=== PATIENT | male | born 1935 | race Caucasian/White ===

== ENCOUNTER → 2016-06-16 | Outpatient (CLI) | payer MEDICARE | END | disposition home or self-care (01) | LOC: GMAL 10:21 | PROVIDERS: ATTEND Family Medicine | DX: Z12.5 Encounter for screening for malignant neoplasm of prostate (principal); Z79.899 Other long term (current) drug therapy; D51.3 Other dietary vitamin B12 deficiency anemia; E55.9 Vitamin D deficiency, unspecified; E03.9 Hypothyroidism, unspecified | CPT/HCPCS: 82306; 82607; 84439; 84443; G0103 ==

== ENCOUNTER 2016-06-21 12:55 | Observation (INO) | payer MEDICARE ==
[2016-06-21] MEDS ORDERED: ASPIRIN TABLET 325 MG TAB PO ONE (13:35)
[2016-06-21] MEDS ORDERED: ASPIRIN TABLET 325 MG TAB ONE (13:36)
--- NOTE | 2016-06-21 14:33 | RAD ---
EXAM DESCRIPTION: Chest,1 View CLINICAL HISTORY: CHEST PAIN COMPARISON: April 02, 2016 IMPRESSION: Single AP portable upright view of the chest shows cardiac silhouette and pulmonary vasculature to be within normal limits. Lungs are normally aerated and clear. Sternotomy wires are seen. Left subclavian dual-lead transvenous cardiac pacemaker is identified. No obvious pleural effusion or pneumothorax is seen. Electronically signed by: Hunter Covarrubias MD 06/21/2016 1:51 PM SEISMOLOGY TEACHER
--- NOTE | 2016-06-21 15:14 | ED.PDOC ---
History of Present Illness - General Chief Complaint: Chest Pain/FL Stated Complaint: chest pain Time Seen by Provider: 06/21/16 14:30 Source: patient, RN notes reviewed, Vital Signs reviewed Exam Limitations: no limitations - History of Present Illness Initial Comments: Patient is a 81 y/o male with a history of FL s/p CABG in 2000 who had some mild chest pressure that radiated up to his neck, in addition to pain (he reports a numb kind of pain) in his lower left arm. This started around noon. He had some mild shortness of breath. He took a Nitro and shortly thereafter had some diaphoresis, however the chest and neck pain decreased, however the arm pain persisted. The arm pain now is moderate, with very mild chest pain and no neck pain at this time. Timing/Duration: 1-3 hours Severity: mild, moderate Worsening Factors: medication - Nitro x 1 Associated Symptoms: chest pain, diaphoresis Allergies/Adverse Reactions: Allergies Nitrofurantoin [From Macrobid] Allergy (Unknown, Verified 10/11/15 06:37) Sulfamethoxazole w/Trimethoprim [From Bactrim] Allergy (Unknown, Verified 06:37) Diltiazem Adverse Reaction (Unknown, Verified 10/11/15 06:37) bradycardia Solifenacin [From Vesicare] Adverse Reaction (Unknown, Verified 10/11/15 06:37) constipation Home Medications: Ambulatory Orders Aspirin [Aspirin Adult Low Dose] 81 mg PO DAILY 08/25/14 Finasteride 5 mg PO DAILY 08/25/14 Metoprolol Tartrate 100 mg PO BIDFD 08/25/14 Pravastatin Sodium [Pravachol] 80 mg PO BEDTIME 08/25/14 glipiZIDE [Glucotrol] 2.5 mg PO DAILY 08/25/14 Sitagliptin-Metformin HCl [Janumet Xr 50-500 mg] 1 tab PO BID 11/27/14 Levothyroxine Sodium [Synthroid] 75 mcg PO ACBK 01/02/15 Multiple Vitamins W/ Minerals [One Daily Mens] 1 tab PO DAILY 01/02/15 Tamsulosin [Flomax] 0.4 mg PO DAILY 01/02/15 Cephalexin Monohydrate [Keflex] 500 mg PO DAILY 06/01/15 Lisinopril 40 mg PO DAILY 06/01/15 Hydrochlorothiazide 12.5 mg PO DAILY #0 06/02/15 Saxagliptin-Metformin HCl [Kombiglyze Xr] 1 tab PO 12/28/15 amLODIPine BESYLATE [Norvasc] 12/28/15 Review of Systems - Review of Systems Constitutional: States: diaphoresis EENTM: States: no symptoms reported Respiratory: States: short of breath Cardiology: States: chest pain, palpitations Gastrointestinal/Abdominal: States: no symptoms reported Genitourinary: States: no symptoms reported Musculoskeletal: States: back pain Skin: States: no symptoms reported Neurological: States: no symptoms reported Endocrine: States: no symptoms reported Hematologic/Lymphatic: States: no symptoms reported All other Systems: Reviewed and Negative Past Medical History (General) - Patient Medical History Hx Seizures: No Hx Stroke: No Hx Dementia: No Hx Asthma: No Hx of COPD: Yes Hx Cardiac Disorders: Yes - proxymal atrial fib, CAD Hx Congestive Heart Failure: No Hx Pacemaker: Yes Hx Hypertension: Yes Hx Thyroid Disease: Yes Hx Diabetes: Yes Hx Gastroesophageal Reflux: Yes - recent onset Hx Renal Disease: Yes - chronic UTI's Hx Cancer: No Hx of HIV: No Hx Hepatitis C: No Hx MRSA: Yes MRSA Source:: Sputum Surgical History: coronary bypass surgery, pacemaker - Vaccination History Hx Tetanus, Diphtheria Vaccination: - UNKN Hx Influenza Vaccination: Yes Hx Pneumococcal Vaccination: Yes - Social History Hx Tobacco Use: No Hx Chewing Tobacco Use: No Hx Alcohol Use: No Hx Substance Use: No Hx Depression: No Hx Physical Abuse: No Hx Emotional Abuse: No Hx Suspected Abuse: No - Female History Patient : No Family Medical History - Family History Father Family History: Unknown Living Status: Age at (years of age): 66 Cause of : infectious process Hx Family Hypertension: Yes Hx Cardiac Disease: Yes Mother Living Status: Age at (years of age): 79 Cause of : Alzheimer's Hx Family Stroke: Yes Hx Cardiac Disease: Yes Hx Family;Other: Family Hx of Alpha1 antitrypsin deficiency Physical Exam - Physical Exam General Appearance: Alert, Comfortable, No apparent distress, Obese Eye Exam: bilateral normal Ears, Nose, Throat: hearing grossly normal, normal ENT inspection Respiratory: lungs clear, normal breath sounds, no respiratory distress, no accessory muscle use Cardiovascular/Chest: regular rate, rhythm, no edema, no gallop, no JVD, no murmur Gastrointestinal/Abdominal: normal bowel sounds, non tender, soft, no organomegaly Extremity: normal range of motion, non-tender, normal inspection, no calf tenderness, pedal edema Neurologic: alert, normal mood/affect, oriented x 3 Skin Exam: normal color Progress - Results/Orders Results/Orders: 06/21/16 06/21/16 06/21/16 13:13 14:13 14:38 Temperature 96.6 F L Pulse Rate [ 63 62 MONITOR] Respiratory 20 20 Rate Blood Pressure 116/64 131/73 [Left Arm] O2 Sat by Pulse 97 97 Oximetry 06/21/16 06/21/16 06/21/16 15:00 16:00 17:00 Temperature Pulse Rate [ 60 60 62 MONITOR] Respiratory 20 20 Rate Blood Pressure 110/60 118/66 125/59 [Left Arm] O2 Sat by Pulse Oximetry 06/21/16 13:35 IV Care:Saline Lock per Protoc QSHIFT Telemetry .ONCE Sodium Chloride 0.9% (Flush) [Saline Flush Syringe] 10 ml IV PRN PRN Pulse Ox Stat 06/21/16 15:45 EKG STAT 06/21/16 17:00 EKG STAT Laboratory Results WBC 8.1 K/mm3 (4.8-10.8) 06/21/16 13:39 RBC 4.45 M/mm3 (4.70-6.10) L 06/21/16 13:39 Hgb 13.4 gm/dL (14.0-18.0) L 06/21/16 13:39 Hct 39.9 % (42.0-52.0) L 06/21/16 13:39 MCV 89.6 fl (80.0-94.0) 06/21/16 13:39 MCH 30.1 pg (27.0-31.0) 06/21/16 13:39 MCHC 33.6 g/dL (33.0-37.0) 06/21/16 13:39 RDW 13.7 % (11.5-14.5) 06/21/16 13:39 Plt Count 201 K/mm3 (130-400) 06/21/16 13:39 MPV 8.6 fl (7.40-10.4) 06/21/16 13:39 Absolute Neuts (auto) 3.80 K/uL (1.8-6.8) 06/21/16 13:39 Absolute Lymphs (auto) 3.00 K/uL (1.0-3.4) 06/21/16 13:39 Absolute Monos (auto) 0.80 K/uL (0.2-0.8) 06/21/16 13:39 Absolute Eos (auto) 0.40 K/uL (0.0-0.4) 06/21/16 13:39 Absolute Basos (auto) 0.00 K/uL (0.0-0.1) 06/21/16 13:39 Neutrophils % 47.1 % (42.0-78.0) 06/21/16 13:39 Lymphocytes % 37.5 % (20.0-50.0) 06/21/16 13:39 Monocytes % 9.7 % (2.0-9.0) H 06/21/16 13:39 Eosinophils % 5.2 % (1.0-5.0) H 06/21/16 13:39 Basophils % 0.5 % (0.0-2.0) 06/21/16 13:39 PT 12.2 SECONDS (9.4-12.5) 06/21/16 13:39 INR 1.080 06/21/16 13:39 PTT (SP) 32.5 SECONDS (25.1-36.5) 06/21/16 13:39 D-Dimer, Quantitative < 230 ng/mL (0-230) 06/21/16 13:39 Sodium 138 mmol/L (135-145) 06/21/16 13:39 Potassium 3.7 mmol/L (3.6-5.0) 06/21/16 13:39 Chloride 103 mmol/L (101-111) 06/21/16 13:39 Carbon Dioxide 26 mmol/L (21-31) 06/21/16 13:39 Anion Gap 12.7 (12-18) 06/21/16 13:39 BUN 19 mg/dL (7-18) H 06/21/16 13:39 Creatinine 0.90 mg/dL (0.6-1.3) 06/21/16 13:39 BUN/Creatinine Ratio 21.1 (10-20) H 06/21/16 13:39 Random Glucose 170 mg/dL (70-105) H 06/21/16 13:39 Serum Osmolality 281.9 mOsm/L (275-295) 06/21/16 13:39 Calcium 9.3 mg/dL (8.4-10.2) 06/21/16 13:39 Magnesium 1.7 mg/dL (1.8-2.5) L 06/21/16 13:39 Creatine Kinase 66 IU/L (38-174) 06/21/16 16:55 CK-MB (CK-2) 1.4 ng/mL (0.0-4.4) 06/21/16 16:55 CK-MB (CK-2) % Not Reportable 06/21/16 16:55 Troponin I < 0.02 ng/mL (0.01-0.05) 06/21/16 16:55 B-Natriuretic Peptide 39.4 pg/ml (0-100) 06/21/16 13:39 Urine Color Yellow (Yellow) 06/21/16 15:15 Urine Appearance Clear (Clear) 06/21/16 15:15 Urine pH 5.0 (4.5-7.8) 06/21/16 15:15 Ur Specific [place] <= 1.005 (1.005-1.030) 06/21/16 15:15 Urine Protein Negative mg/dL 06/21/16 15:15 Urine Glucose (UA) Negative mg/dL (Negative) 06/21/16 15:15 Urine Ketones Negative mg/dL (NEGATIVE) 06/21/16 15:15 Urine Blood Negative (Negative) 06/21/16 15:15 Urine Nitrite Negative 06/21/16 15:15 Urine Bilirubin Negative (NEGATIVE) 06/21/16 15:15 Urine Urobilinogen 0.2 mg/dL (0.2-1.0) 06/21/16 15:15 Ur Leukocyte Esterase Negative (Negative) 06/21/16 15:15 Urine RBC 0 /hpf 06/21/16 15:15 Urine WBC 0 /hpf 06/21/16 15:15 Ur Epithelial Cells 0 /hpf 06/21/16 15:15 Urine Bacteria 0 06/21/16 15:15 EKG # 3, No changes from EKG #1 and #2 Sinus rhythm Rate 61 bpm [place] NML Short [place] interval Nonspecific T wave inversion Abnormal EKG - EKG/XRAY/CT EKG: Sinus, nonspecific ST T wave Chg, Unchanged from - EKG of 10/11/2015 Comments: NML axis, short [place] -- abnormal EKG, unchanged XRAY: chest Xray Comments: No acute process CT Ordered: No - Consult/PCP Time Called: 19:00 - Call back @ 1915 Consult/PCP: Dr. Velasquez Consult Reason/Comments: call or contact centre manager for Dr. Rodriguez--admit Patient for OBS - Additional EKG/XRAY/Consults EKG #2: Sinus - 61, nonspecific ST T wave Chg, Unchanged from - EKG #1 Comments: NML axis, short [place], PACs, Departure - Departure Clinical Impression: Chest pain Qualifiers: Chest pain type: chest pain due to myocardial ischemia Qualifier Code: (I20.9) Angina pectoris, unspecified Diabetes mellitus Qualifiers: Diabetes mellitus type: type 2 Diabetes mellitus complication status: with hyperglycemia Qualifier Code: (E11.65) Type 2 diabetes mellitus with hyperglycemia Time of Disposition: 19:06 Disposition: Admit Patient Condition: Good Home Medications: Ambulatory Orders Aspirin [Aspirin Adult Low Dose] 81 mg PO DAILY 08/25/14 Finasteride 5 mg PO DAILY 08/25/14 Metoprolol Tartrate 100 mg PO BIDFD 08/25/14 Pravastatin Sodium [Pravachol] 80 mg PO BEDTIME 08/25/14 glipiZIDE [Glucotrol] 2.5 mg PO DAILY 08/25/14 Sitagliptin-Metformin HCl [Janumet Xr 50-500 mg] 1 tab PO BID 11/27/14 Levothyroxine Sodium [Synthroid] 75 mcg PO ACBK 01/02/15 Multiple Vitamins W/ Minerals [One Daily Mens] 1 tab PO DAILY 01/02/15 Tamsulosin [Flomax] 0.4 mg PO DAILY 01/02/15 Cephalexin Monohydrate [Keflex] 500 mg PO DAILY 06/01/15 Lisinopril 40 mg PO DAILY 06/01/15 Hydrochlorothiazide 12.5 mg PO DAILY #0 06/02/15 Saxagliptin-Metformin HCl [Kombiglyze Xr] 1 tab PO 12/28/15 amLODIPine BESYLATE [Norvasc] 12/28/15 Decision To Admit - Decistion To Admit Decision to Admit Reason: Admit from ER Decision to Admit Date: 06/21/16 Decision to Admit Time: 19:15
[2016-06-21] MEDS: SODIUM CHLORIDE 0.9% (FLUSH) 10 ML SYG IV PRN ×2 (18:42→21:49)
[2016-06-21] MEDS ORDERED: NITROGLYCERIN 0.2 MG/HR PATCH TD ONE (18:52)
--- NOTE | 2016-06-21 19:43 | HP ---
HISTORY OF PRESENT ILLNESS: This 81-year-old, white male was placed in the hospital overnight for observation from the Emergency Room because of onset about noon on the day of admission of fairly significant left arm and left lateral chest wall discomfort noted. He was not exerting himself, but he had some similar symptoms in the past in 2000 when he had a coronary event requiring triple bypass grafting. About 1-1/2 years ago, he had a stress EKG, which was unremarkable. He is being followed in the clinic by Dr. Combs and by Dr. Rodriguez in the cardiology clinic. He took a nitroglycerin after the onset of the discomfort and had some fairly significant improvement in the arm aching discomfort. He stated it felt like his blood supply to his left arm had been compromised and it felt like it was going to sleep and was aching and was eventually better by the time he got to the Emergency Room where eventually a nitroglycerin 0.2 mg patch was placed. At the time of his entry to the hospital , there was no pain noted. The executive chairman therapeutic recreation director for his executive chairman suggested that we observe him overnight with repeat enzymes in the morning to doubly be sure that there was no underlying coronary ischemia contributing to some of his symptoms. At the time of the discomfort, he also had some diaphoresis. He has a history of diabetes for which he takes oral medications. PAST MEDICAL HISTORY: 1. Coronary vessel disease with a triple coronary bypass grafting in 2000. 2. Diabetes mellitus, type 2. 3. Hypertension. 4. Paroxysmal atrial fibrillation. 5. Hyperlipidemia. 6. Gastroesophageal reflux disease. 7. History of nephrolithiasis since 1998. 8. Hypothyroidism since 2003. 9. 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 10. History of thyroiditis, probable [place]. 11. Benign prostatic hypertrophy without obstruction history. 12. History of chronic cystitis, recurring with requiring daily antibiotics, currently on Keflex. 13. Chronic significant incontinence of urine with a bladder stimulator placed. 14. Chronic obstructive pulmonary disease. 15. Mild congestive heart failure with most recently echocardiogram in 05/03 showing ejection fraction of 60% with mild systolic dysfunction. PAST SURGICAL HISTORY: 1. Inguinal hernia repaired in the late 50s. 2. Tonsillectomy as a child. 3. 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 4. Triple vessel coronary bypass grafting in November of 2000. 5. Coronary angiography in 2004 which showed wide open grafts. 6. Right knee arthroscopy with medial and lateral partial meniscectomies and patellofemoral chondroplasty by Dr. Olivarez in November of 2010. 7. InterStim peripheral nerve stimulator implant for refractory urge bladder incontinence by Adan in 09/2011. CURRENT MEDICATIONS: Please refer to list for up to date, verified list of home medications. ALLERGIES: MACROBID, VESICARE, DILTIAZEM, BACTRIM, SOLIFENACIN, FAMILY HISTORY: Positive for coronary artery disease, diabetes, and cancer with dementia. SOCIAL HISTORY: He has worked in [employer] business as well as [employer]. His has dementia. He has two children. He quit smoking in 1984 after 20 years of smoking. REVIEW OF SYSTEMS: GENERAL: No significant weight change, fever or chills. LUNGS: Occasional shortness of breath upon exertion. No significant cough or hemoptysis. CARDIOVASCULAR: Left upper arm discomfort noted with his current illness presentation. Occasional atrial fibrillation. GASTROINTESTINAL: Appetite is fairly good. No nausea or vomiting. No diarrhea or blood in the stools. NEUROLOGIC: No significant headaches or focal weakness. PHYSICAL EXAMINATION: VITAL SIGNS: Afebrile. Pulse 60. Blood pressure 110/60. Pulse oximetry 97% on room air. Weight 136 kg. GENERAL: The patient is awake, alert, oriented . HEENT: Unremarkable. NECK: Supple. LUNGS: Diminished breath sounds with occasional rhonchi, more on the right base versus the left. CARDIOVASCULAR: Heart tones are fairly regular without any significant gallops. ABDOMEN: Obese, yet soft with no organomegaly, masses or tenderness. EXTREMITIES: Good muscle tone is noted. No significant pedal edema otherwise evident. NEUROLOGIC: No focal neurological deficits are noted. The patient is otherwise awake, alert, oriented. LABORATORY: White count 8,100, hemoglobin 13.4. INR 1.08. D-dimer less than 230. Potassium 3.7, BUN 19, creatinine 0.9, glucose 170, magnesium 1.7. Repeat cardiac enzymes within normal limits. Troponin 0 on 3 testings. Natriuretic peptide 39.4. Recent vitamin studies by Dr. Combs reveal low B12 and vitamin D levels with normal PSA to be discussed with the patient at the next clinic visit. Chest x-ray shows no acute cardiopulmonary findings at this time. ASSESSMENT: 1. Acute lateral chest with left upper extremity discomfort, rule out underlying ischemic coronary disease. 2. History of coronary artery disease with triple coronary artery bypass grafting. 3. History of chronic pacemaker with capture. 4. Chronic urinary incontinence with a bladder stimulator in an attempt to assist. 5. Diabetes mellitus, type 2, on oral hypoglycemic agents. 6. History of congestive heart failure with etiology primarily systolic. 7. History of chronic obstructive pulmonary disease having stopped smoking approximately 31 years ago. 8. Exogenous obesity. 9. History of paroxysmal atrial fibrilla. 10. History of hyperlipidemia. 11. History of hypothyroidism on supplementation. 12. History of benign prostatic hypertrophy. PLAN: We will continue close observation with reevaluation in the morning. Continue with SCD and Lovenox for DVT prophylaxis. Repeat cardiac enzymes and EKG in the morning. Continue the nitroglycerin patch, low dose. Suggest calling Dr. Rodriguez before the patient is discharged to allow him to know of the patient's symptoms as well as his clinical course during his observation in the hospital. #[id number] MTDD
[2016-06-21] MEDS ORDERED: NITROGLYCERIN 0.4 MG 25 EA TAB SL PRN (21:10)
[2016-06-21] MEDS ORDERED: ACETAMINOPHEN 325 MG TAB PO PRN (21:10)
[2016-06-21] MEDS ORDERED: SODIUM CHLORIDE 0.9% (FLUSH) 10 ML SYG IV PRN (21:10)
[2016-06-21] MEDS ORDERED: MORPHINE SULFATE INJ 10 MG/ML VIAL IV PRN (21:10)
[2016-06-21] MEDS ORDERED: ENOXAPARIN SODIUM 40 MG/0.4 ML SYG SUBCU SCH (21:30)
[2016-06-21] MEDS ORDERED: IV SET AND CAP CHANGE INJ INJ SCH (21:30)
[2016-06-22] MEDS ORDERED: METOPROLOL TARTRATE 50 MG TAB ONE (05:23)
[2016-06-22] MEDS ORDERED: LISINOPRIL 10 MG TAB ONE (05:27)
[2016-06-22] MEDS ORDERED: OMEPRAZOLE CAP 20 MG CAP PO SCH (06:30)
[2016-06-22] MEDS ORDERED: LEVOTHYROXINE SODIUM 0.075 MG TAB PO SCH (07:00)
[2016-06-22] MEDS ORDERED: METOPROLOL TARTRATE 50 MG TAB PO SCH (07:30)
[2016-06-22] MEDS ORDERED: SODIUM CHLORIDE 0.9% 10 ML VIAL IV PRN (07:33)
[2016-06-22] MEDS ORDERED: glipiZIDE 5 MG TAB PO SCH (09:00)
[2016-06-22] MEDS ORDERED: ASPIRIN TABLET 325 MG TAB PO SCH (09:00)
[2016-06-22] MEDS ORDERED: FINASTERIDE 5 MG TAB PO SCH (09:00)
[2016-06-22] MEDS ORDERED: LISINOPRIL 10 MG TAB PO SCH (09:00)
[2016-06-22] MEDS ORDERED: SODIUM CHLORIDE 0.9% (FLUSH) 10 ML SYG IV SCH (09:00)
[2016-06-22] MEDS ORDERED: MULTIPLE VITAMINS W/ MINERALS 1 EA TAB PO SCH (09:00)
[2016-06-22] MEDS ORDERED: TAMSULOSIN 0.4 MG CAP PO SCH (09:00)
[2016-06-22] MEDS ORDERED: CEPHALEXIN MONOHYDRATE 500 MG CAP PO SCH (09:00)
[2016-06-22 11:03] VITALS: BP 128/70; TEMP 97.9; O2SAT 97
[2016-06-22] MEDS ORDERED: METFORMIN PO SCH (17:00)
[2016-06-22] MEDS ORDERED: [UNRECOGNIZED DRUG - OTHER] PO SCH (17:00)
[2016-06-22] MEDS ORDERED: SAXAGLIPTIN PO SCH (17:00)
--- NOTE | 2016-07-06 09:17 | DS ---
SUPERVISING PHYSICIAN:: CHRIS AUGUSTE MD DISCHARGE DIAGNOSES: 1. Acute lateral chest wall pain with left upper extremity discomfort, rule out underlying ischemic coronary disease. 2. History of coronary artery disease with triple coronary artery bypass grafting. 3. History of chronic pacemaker. 4. Chronic urinary incontinence with a bladder stimulator. 5. Diabetes mellitus, type 2, on oral hypoglycemic medications. 6. History of congestive heart failure with systolic etiology and unknown ejection fraction.. 7. History of chronic obstructive pulmonary disease. 8. Exogenous obesity. 9. History of paroxysmal atrial fibrillation. 10. Hyperlipidemia. 11. Hypothyroidism.. 12. History of benign prostatic hypertrophy. HISTORY OF PRESENT ILLNESS: This is a 81-year-old, white male who was placed in the hospital overnight for observation from the Emergency Room because of around noon the day of admission he had a fairly significant amount of left arm and left lateral chest pain. He was at rest but he has had some similar symptoms in the past in 2000 and at that time he had a heart attack that required triple bypass grafting. About 1-1 /2 year ago, he had a stress EKG, which was unremarkable. Dr. 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 Prior to coming to the Emergency Room he took a Nitroglycerin and had some improvement with the discomfort. In the Emergency Room, a Nitroglycerin 0.2 mg patch was placed. His initial cardiac enzymes were negative. Dr. Rodriguez was called and suggested that we place him in observation to repeat his enzymes. He had no other discomfort overnight. Cardiac enzymes continued to be negative. His triglyceride were some high at 261. Other than that, he had no discomfort overnight. His home medications were resumed. His vital signs were stable and he will be discharged home. DISCHARGE PLANS: The patient will be discharged home in stable condition. He is to resume his previous home medications. He is to resume a cardiac diet. He has a followup appointment with Dr. Rodriguez on July 05 and he is to call Dr. Combs' office and schedule an appointment within the next 1 to 2 weeks for a hospital followup. He is to return to the hospital or call Dr. Combs' office if there are any further problems or complications. DISCHARGE MEDICATIONS: 1. Metoprolol tartrate. 2. Aspirin. 3. Glucotrol. 4. Pravachol. 5. Finasteride. 6. Synthroid. 7. Multivitamins with minerals. 8. Tamsulosin. 9. Lisinopril. 10. Cephalexin. 11. Hydrochlorothiazide. 12. Kombiglyze. 13. Amlodipine. Dr. Auguste is the supervising physician and available for consultation. #[id number] [facility]
== END 2016-06-22 14:20 | disposition home or self-care (01) ==
LOC: ER 12:55 → MS 19:41
PROVIDERS: ADMIT Emergency Medicine; ATTEND Nurse Practitioner Acute Care
DX: R07.89 Other chest pain (principal); I25.10 Atherosclerotic heart disease of native coronary artery without angina pectoris; R32 Unspecified urinary incontinence; E11.65 Type 2 diabetes mellitus with hyperglycemia; R06.02 Shortness of breath; I50.22 Chronic systolic (congestive) heart failure; J44.9 Chronic obstructive pulmonary disease, unspecified; E66.9 Obesity, unspecified; I48.0 Paroxysmal atrial fibrillation; E78.5 Hyperlipidemia, unspecified; E03.9 Hypothyroidism, unspecified; I10 Essential (primary) hypertension; N40.1 Benign prostatic hyperplasia with lower urinary tract symptoms; K21.9 Gastro-esophageal reflux disease without esophagitis; G89.29 Other chronic pain; M51.36 Other intervertebral disc degeneration, lumbar region; I25.2 Old myocardial infarction; Z95.1 Presence of aortocoronary bypass graft; Z95.0 Presence of cardiac pacemaker; Z79.84 Long term (current) use of oral hypoglycemic drugs; Z79.82 Long term (current) use of aspirin; Z79.899 Other long term (current) drug therapy; Z88.3 Allergy status to other anti-infective agents; Z88.8 Allergy status to other drugs, medicaments and biological substances; Z68.37 Body mass index [BMI] 37.0-37.9, adult; Z87.442 Personal history of urinary calculi; Z85.828 Personal history of other malignant neoplasm of skin; Z87.891 Personal history of nicotine dependence; Z82.49 Family history of ischemic heart disease and other diseases of the circulatory system; Z83.3 Family history of diabetes mellitus; Z80.9 Family history of malignant neoplasm, unspecified; Z81.8 Family history of other mental and behavioral disorders
CPT/HCPCS: 36415 ×3; 71010; 80048 ×2; 80061; 81001; 82550 ×4; 82553 ×4; 83880; 84484 ×4; 85025 ×2; 85379; 85610; 85730; 93005 ×4; 94760 ×3; 96372; 99284; G0378; J1650

== ENCOUNTER → 2016-09-14 | Outpatient (CLI) | payer MEDICARE | END | disposition home or self-care (01) | LOC: GMA 18:12 | PROVIDERS: ATTEND Nurse Practitioner Family | DX: N30.01 Acute cystitis with hematuria (principal) ==

== ENCOUNTER → 2016-09-22 | Outpatient (CLI) | payer MEDICARE | END | disposition home or self-care (01) | LOC: GMAL 17:06 | PROVIDERS: ATTEND Family Medicine | DX: N30.01 Acute cystitis with hematuria (principal) ==

== ENCOUNTER → 2016-10-03 | Outpatient (CLI) | payer MEDICARE | END | disposition home or self-care (01) | LOC: GMAL 10:25 | PROVIDERS: ATTEND Family Medicine | DX: D51.3 Other dietary vitamin B12 deficiency anemia (principal); E55.9 Vitamin D deficiency, unspecified ==

== ENCOUNTER → 2016-10-07 | Outpatient (CLI) | payer MEDICARE | END | disposition home or self-care (01) | LOC: GMAL 10:39 | PROVIDERS: ATTEND Family Medicine | DX: N30.01 Acute cystitis with hematuria (principal) ==

== ENCOUNTER → 2016-12-08 | Outpatient (CLI) | payer MEDICARE | END | disposition home or self-care (01) | LOC: GMA 19:31 | PROVIDERS: ATTEND Nurse Practitioner Family | DX: N30.01 Acute cystitis with hematuria (principal) ==

== ENCOUNTER → 2017-04-06 | Outpatient (CLI) | payer MEDICARE | END | disposition home or self-care (01) | LOC: GMAL 10:39 | PROVIDERS: ATTEND Family Medicine | DX: D51.3 Other dietary vitamin B12 deficiency anemia (principal); E03.9 Hypothyroidism, unspecified; E55.9 Vitamin D deficiency, unspecified ==

== ENCOUNTER 2017-05-31 11:49 | Emergency (ER) | payer MEDICARE ==
--- NOTE | 2017-05-31 13:08 | RAD ---
EXAM DESCRIPTION: Chest,1 View CLINICAL HISTORY: chest pain COMPARISON: June 21, 2016 Findings/impression: Single upright portable frontal view of the chest. Dual-lead left chest cardiac pacemaker in stable position. Postsurgical changes with median sternotomy wires. Cardiac silhouette and pulmonary vascularity are within normal limits. Minimal linear opacities in the left lung base, most likely representing atelectasis. Otherwise, lungs are clear without definite focal consolidative infiltrates. Bilateral costophrenic angles are sharp. No pneumothorax. Electronically signed by: Mejia Jimenez MD 05/31/2017 1:06 PM [employer]
--- NOTE | 2017-05-31 13:43 | ED.PDOC ---
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 THE PAIN WAS SHARP AND RATED ABOUT 8/10/ LASTED ABDOUT 30 MINUTES AND THEN SLOWLY SUBSIDED. WHEN HE ARRIVES THE PAIN IS GONE. HE HAD BYPASS SURGERY IN 2000 AND HAD TYPE II DM. Timing/Duration: 1-3 hours Severity: moderate Location: shoulder, other - and left side of the neck Activities at Onset: none Prior Chest Pain/Cardiac Workup: other - he is a cardiac patient Improving Factors: nothing Worsening Factors: nothing Nitro Today/Relief: no nitro taken today Associated Symptoms: denies symptoms Allergies/Adverse Reactions: Allergies Nitrofurantoin [From Macrobid] Allergy (Unknown, Verified 10/11/15 06:37) Sulfamethoxazole w/Trimethoprim [From Bactrim] Allergy (Unknown, Verified 06:37) Diltiazem Adverse Reaction (Unknown, Verified 10/11/15 06:37) bradycardia Solifenacin [From Vesicare] Adverse Reaction (Unknown, Verified 10/11/15 06:37) constipation Home Medications: Ambulatory Orders Aspirin [Aspirin Adult Low Dose] 81 mg PO DAILY 08/25/14 Finasteride 5 mg PO DAILY 08/25/14 Metoprolol Tartrate 100 mg PO BIDFD 08/25/14 Pravastatin Sodium [Pravachol] 80 mg PO BEDTIME 08/25/14 glipiZIDE [Glucotrol] 2.5 mg PO DAILY 08/25/14 Levothyroxine Sodium [Synthroid] 75 mcg PO ACBK 01/02/15 Multiple Vitamins W/ Minerals [One Daily Mens] 1 tab PO DAILY 01/02/15 Tamsulosin [Flomax] 0.4 mg PO DAILY 01/02/15 Cephalexin Monohydrate [Keflex] 500 mg PO DAILY 06/01/15 Lisinopril 40 mg PO DAILY 06/01/15 Hydrochlorothiazide 12.5 mg PO DAILY #0 06/02/15 Saxagliptin-Metformin HCl [Kombiglyze Xr 2.5-1000 mg] 1 tab PO BIDFD 12/28/15 Amlodipine Besylate 10 mg PO DAILY 06/22/16 Review of Systems - Review of Systems Constitutional: States: no symptoms reported EENTM: States: no symptoms reported Respiratory: States: no symptoms reported Cardiology: States: chest pain Gastrointestinal/Abdominal: States: no symptoms reported Musculoskeletal: States: neck pain Skin: States: no symptoms reported Neurological: States: no symptoms reported Endocrine: States: no symptoms reported Hematologic/Lymphatic: States: no symptoms reported Past Medical History (General) - Patient Medical History Hx Seizures: No Hx Stroke: No Hx Dementia: No Hx Asthma: No Hx of COPD: No Hx Cardiac Disorders: Yes - CABG Hx Congestive Heart Failure: Yes Hx Pacemaker: Yes Hx Hypertension: Yes Hx Thyroid Disease: Yes Hx Diabetes: Yes Hx Gastroesophageal Reflux: Yes - recent onset Hx Renal Disease: Yes - chronic UTI's Hx Cancer: No Hx of HIV: No Hx Hepatitis C: No Hx MRSA: No MRSA Source:: Sputum Surgical History: coronary bypass surgery, pacemaker, other - Vaccination History Hx Tetanus, Diphtheria Vaccination: - UNKN Hx Influenza Vaccination: Yes - 2016 Hx Pneumococcal Vaccination: Yes - Social History Hx Tobacco Use: Yes - Quit 1984 Hx Chewing Tobacco Use: No Hx Alcohol Use: No Hx Substance Use: No Hx Depression: No Hx Physical Abuse: No Hx Emotional Abuse: No Hx Suspected Abuse: No - Female History Patient : No Family Medical History - Family History Father Family History: Unknown Living Status: Age at (years of age): 66 Cause of : infectious process Hx Family Asthma: No Hx Family Congestive Heart Failure: No Hx Family Hypertension: Yes Hx Family Stroke: No Hx Cardiac Disease: Yes Hx Family Diabetes: Yes Hx Family Cancer: Yes Mother Living Status: Age at (years of age): 79 Cause of : Alzheimer's Hx Family Congestive Heart Failure: No Hx Family Hypertension: No Hx Family Stroke: Yes Hx Cardiac Disease: Yes Hx Family Diabetes: No Hx Family Cancer: No Hx Family;Other: Family Hx of Alpha1 antitrypsin deficiency Physical Exam - Physical Exam General Appearance: Alert Eyes, Ears, Nose, Throat Exam: PERRL/EOMI, normal ENT inspection, TMs normal, pharynx normal Neck: non-tender, full range of motion, supple Respiratory: chest non-tender, lungs clear, normal breath sounds, no respiratory distress, no accessory muscle use Cardiovascular/Chest: normal peripheral pulses, regular rate, rhythm, no edema, no gallop, no JVD, no murmur Peripheral Pulses: radial,right: 2+ Gastrointestinal/Abdominal: normal bowel sounds, non tender, soft, no organomegaly, no pulsatile mass Rectal Exam: deferred Extremity: normal range of motion Neurologic: no motor/sensory deficits, alert, normal mood/affect, oriented x 3 Skin Exam: normal color Lymphatic: no adenopathy Progress - Results/Orders Results/Orders: HR OF 67, NE INTERVAL OF 80, QRS OF 94, QTC OF 397. IMPRESSION: PACED RHYTHM, NO ACUTE INJURY PATTERN NOTED TROPONIN I WAS 0.02 TH E PATIENT HAS BEEN PAIN FREE. I HAVE MADE AN APPOINTMENT WITH DR. FIGUEREDO MONDAY AT 1300 HRS. Departure - Departure Clinical Impression: Chest pain in adult Disposition: Discharge to Home or Self Care Condition: Good Departure Forms: ED Discharge - Pt. Copy, Patient Portal Self Enrollment Instructions: DI for Chest Pain Diet: resume usual diet Activity: increase activity as tolerated Referrals: Mejia Combs III, MD [Primary Care Provider] - 1-2 Weeks CAITLYN FIGUEREDO MD [Consulting Staff] - 1-2 Weeks Home Medications: Ambulatory Orders Aspirin [Aspirin Adult Low Dose] 81 mg PO DAILY 08/25/14 Finasteride 5 mg PO DAILY 08/25/14 Metoprolol Tartrate 100 mg PO BIDFD 08/25/14 Pravastatin Sodium [Pravachol] 80 mg PO BEDTIME 08/25/14 glipiZIDE [Glucotrol] 2.5 mg PO DAILY 08/25/14 Levothyroxine Sodium [Synthroid] 75 mcg PO ACBK 01/02/15 Multiple Vitamins W/ Minerals [One Daily Mens] 1 tab PO DAILY 01/02/15 Tamsulosin [Flomax] 0.4 mg PO DAILY 01/02/15 Cephalexin Monohydrate [Keflex] 500 mg PO DAILY 06/01/15 Lisinopril 40 mg PO DAILY 06/01/15 Hydrochlorothiazide 12.5 mg PO DAILY #0 06/02/15 Saxagliptin-Metformin HCl [Kombiglyze Xr 2.5-1000 mg] 1 tab PO BIDFD 12/28/15 Amlodipine Besylate 10 mg PO DAILY 06/22/16
[2017-05-31 15:26] VITALS: BP 132/59; TEMP 97; O2SAT 98
== END 2017-05-31 15:25 | disposition home or self-care (01) ==
LOC: ER 11:49
DX: R07.9 Chest pain, unspecified (principal); E07.9 Disorder of thyroid, unspecified; E11.9 Type 2 diabetes mellitus without complications; Z87.891 Personal history of nicotine dependence; I11.0 Hypertensive heart disease with heart failure; I50.9 Heart failure, unspecified; Z95.1 Presence of aortocoronary bypass graft; Z79.82 Long term (current) use of aspirin; Z79.899 Other long term (current) drug therapy

== ENCOUNTER → 2017-08-10 | Outpatient (CLI) | payer MEDICARE | LOC: SL 19:37 | PROVIDERS: ATTEND Family Medicine | DX: G47.00 Insomnia, unspecified (principal); G47.10 Hypersomnia, unspecified; E11.9 Type 2 diabetes mellitus without complications; I10 Essential (primary) hypertension; R06.83 Snoring ==

== ENCOUNTER → 2017-09-01 | Outpatient (CLI) | payer MEDICARE | LOC: LAB.O 16:37 | PROVIDERS: ATTEND Nurse Practitioner Family | DX: I48.91 Unspecified atrial fibrillation (principal); R07.9 Chest pain, unspecified ==

== ENCOUNTER 2017-09-28 14:48 | Emergency (ER) | payer MEDICARE ==
[2017-09-28] MEDS ORDERED: ASPIRIN TABLET 325 MG TAB PO ONE (15:24)
[2017-09-28] MEDS ORDERED: SODIUM CHLORIDE 0.9% (FLUSH) 10 ML SYG IV PRN (15:24)
[2017-09-28] MEDS ORDERED: NITROGLYCERIN 0.4 MG 25 EA TAB SL ONE (15:24)
[2017-09-28 15:36] VITALS: TEMP 96.8
--- NOTE | 2017-09-28 15:49 | RAD ---
EXAM DESCRIPTION: Chest,1 View CLINICAL HISTORY: 82 years Male, chest pain COMPARISON: Previous study May 31, 2017 TECHNIQUE: AP portable chest. FINDINGS: Heart size is normal with normal pulmonary vascularity. Sternotomy wires are present. Cardiac pacer is in place. No consolidating infiltrate. No pulmonary mass or worrisome nodule. No pneumothorax or pleural effusion. Bones are unremarkable. IMPRESSION: Prominent heart without congestive failure. Electronically signed by: Kasi Rodriguez MD 09/28/2017 3:48 PM CDT
--- NOTE | 2017-09-28 15:50 | ED.PDOC ---
History of Present Illness - General Chief Complaint: Cardiovascular Problem Stated Complaint: BP up and down, Irregular HR Time Seen by Provider: 09/28/17 15:23 Source: patient Exam Limitations: no limitations - History of Present Illness Initial Comments: PT REPORTS GENERALIZED MALAISE AND LOW BP READINGS AT HOME THE PAST FEW DAYS. PT REPORTS INTERMITTENT CHEST DISCOMFORT AND STATES THAT HE HAS A HISTORY OF ANGINA AND AFIB. PT FELT LIKE HE MAY HAVE BEEN IN AFIB DUE TO THE WAY HE FELT. PT WAS INSTRUCTED TO COME TO ED BY PCP. PT STATES HE DID NOT TAKE HIS MEDS THIS MORNING. Severity: moderate Location: substernal Activities at Onset: activity Prior Chest Pain/Cardiac Workup: angina Improving Factors: immobilization Worsening Factors: movement Nitro Today/Relief: no nitro taken today Aspirin Treatment Today: no aspirin today Associated Symptoms: chest pain, malaise, shortness of breath, weakness Allergies/Adverse Reactions: Allergies Nitrofurantoin [From Macrobid] Allergy (Unknown, Verified 10/11/15 06:37) Sulfamethoxazole w/Trimethoprim [From Bactrim] Allergy (Unknown, Verified 06:37) Diltiazem Adverse Reaction (Unknown, Verified 10/11/15 06:37) bradycardia Solifenacin [From Vesicare] Adverse Reaction (Unknown, Verified 10/11/15 06:37) constipation Home Medications: Ambulatory Orders Aspirin [Aspirin Adult Low Dose] 81 mg PO DAILY 08/25/14 Finasteride 5 mg PO DAILY 08/25/14 Metoprolol Tartrate 100 mg PO BIDFD 08/25/14 Pravastatin Sodium [Pravachol] 80 mg PO BEDTIME 08/25/14 glipiZIDE [Glucotrol] 2.5 mg PO DAILY 08/25/14 Levothyroxine Sodium [Synthroid] 75 mcg PO ACBK 01/02/15 Multiple Vitamins W/ Minerals [One Daily Mens] 1 tab PO DAILY 01/02/15 Tamsulosin [Flomax] 0.4 mg PO DAILY 01/02/15 Cephalexin Monohydrate [Keflex] 500 mg PO DAILY 06/01/15 Lisinopril 40 mg PO DAILY 06/01/15 Hydrochlorothiazide 12.5 mg PO DAILY #0 06/02/15 Saxagliptin-Metformin HCl [Kombiglyze Xr 2.5-1000 mg] 1 tab PO BIDFD 12/28/15 Amlodipine Besylate 10 mg PO DAILY 06/22/16 Review of Systems - Review of Systems Constitutional: Denies: chills, fever EENTM: States: nose congestion. Denies: throat pain Respiratory: States: see HPI, short of breath. Denies: cough Cardiology: States: see HPI, chest pain, palpitations Gastrointestinal/Abdominal: Denies: nausea, vomiting Genitourinary: Denies: dysuria, frequency Musculoskeletal: Denies: joint pain, joint swelling Skin: Denies: dryness, lesions Neurological: Denies: headache, paresthesia Endocrine: States: no symptoms reported Hematologic/Lymphatic: States: no symptoms reported Past Medical History (General) - Patient Medical History Hx Seizures: No Hx Stroke: No Hx Dementia: No Hx Asthma: No Hx of COPD: No Hx Cardiac Disorders: Yes - CABG Hx Congestive Heart Failure: Yes Hx Pacemaker: Yes Hx Hypertension: Yes Hx Thyroid Disease: Yes Hx Diabetes: Yes Hx Gastroesophageal Reflux: Yes - recent onset Hx Renal Disease: Yes - chronic UTI's Hx Cancer: No Hx of HIV: No Hx Hepatitis C: No Hx MRSA: No MRSA Source:: Sputum Surgical History: coronary bypass surgery, pacemaker, tonsillectomy, other - Vaccination History Hx Tetanus, Diphtheria Vaccination: - UNKN Hx Influenza Vaccination: Yes - 2016 Hx Pneumococcal Vaccination: Yes - Social History Hx Tobacco Use: Yes - Quit 1984 Hx Chewing Tobacco Use: No Hx Alcohol Use: No Hx Substance Use: No Hx Depression: No Hx Physical Abuse: No Hx Emotional Abuse: No Hx Suspected Abuse: No - Female History Patient : No Family Medical History - Family History Father Family History: Unknown Living Status: Age at (years of age): 66 Cause of : infectious process Hx Family Asthma: No Hx Family Congestive Heart Failure: No Hx Family Hypertension: Yes Hx Family Stroke: No Hx Cardiac Disease: Yes Hx Family Diabetes: Yes Hx Family Cancer: Yes Mother Living Status: Age at (years of age): 79 Cause of : Alzheimer's Hx Family Congestive Heart Failure: No Hx Family Hypertension: No Hx Family Stroke: Yes Hx Cardiac Disease: Yes Hx Family Diabetes: No Hx Family Cancer: No Hx Family;Other: Family Hx of Alpha1 antitrypsin deficiency Physical Exam - Physical Exam General Appearance: Alert, Comfortable, No apparent distress, Obese, Well Groomed, Well Hydrated Eyes, Ears, Nose, Throat Exam: normal ENT inspection Neck: full range of motion, normal inspection Respiratory: lungs clear, normal breath sounds, no respiratory distress Cardiovascular/Chest: regular rate, rhythm, no edema, no murmur Gastrointestinal/Abdominal: non tender, soft Extremity: normal range of motion, non-tender, normal inspection Neurologic: alert, normal mood/affect, oriented x 3 Skin Exam: normal color, warm/dry Progress - Progress Progress: 09/28/17 18:11 PT RESTING COMFORTABLY WITHOUT COMPLAINT. PT FEELING BETTER AFTER IV FLUIDS. LAB FINDINGS DISCUSSED. PT INSTRUCTED TO HOLD BP MEDS UNTIL FOLLOW UP WITH DR. COMBS TOMORROW. - Results/Orders Results/Orders: 09/28/17 15:24 Telemetry .ONCE Sodium Chloride 0.9% (Flush) [Saline Flush Syringe] 10 ml IV PRN PRN EKG Stat Pulse Ox Stat Laboratory Results - last 24 hr 09/28/17 09/28/17 15:28 16:10 WBC 10.7 RBC 4.67 L Hgb 14.5 Hct 42.0 MCV 89.8 MCH 31.0 MCHC 34.5 RDW 13.1 Plt Count 234 MPV 8.9 Absolute Neuts (auto) 5.80 Absolute Lymphs (auto) 3.30 Absolute Monos (auto) 1.00 H Absolute Eos (auto) 0.40 Absolute Basos (auto) 0.10 Neutrophils % 54.6 Lymphocytes % 30.6 Monocytes % 9.5 H Eosinophils % 4.0 Basophils % 1.3 PT 14.7 H INR 1.270 PTT (SP) 40.4 H Sodium 138 Potassium 4.6 Chloride 104 Carbon Dioxide 26 Anion Gap 12.6 BUN 33 H Creatinine 1.09 BUN/Creatinine Ratio 30.3 H Random Glucose 183 H Serum Osmolality 287.6 Calcium 9.2 Magnesium 1.9 Total Bilirubin 0.8 Direct Bilirubin 0.1 Indirect Bilirubin 0.7 AST 18 ALT 19 Alkaline Phosphatase 58 Creatine Kinase 56 CK-MB (CK-2) 1.4 CK-MB (CK-2) % Not Reportable Troponin I < 0.02 B-Natriuretic Peptide 31.5 Serum Total Protein 7.2 Albumin 4.1 Urine Color Yellow Urine Appearance Sl cloudy Urine pH 5.0 Ur Specific [place] >= 1.030 Urine Protein Negative Urine Glucose (UA) Negative Urine Ketones Trace Urine Blood Negative Urine Nitrite Negative Urine Bilirubin Small H Urine Urobilinogen 0.2 Ur Leukocyte Esterase Negative Urine RBC 0-1 Urine WBC 0-1 Ur Epithelial Cells 3-5 Calcium Oxalate Crystal 2+ Amorphous Sediment 3+ Urine Bacteria 1+ Urine Mucus Large - EKG/XRAY/CT EKG: Sinus - @61BPM, SHORT UT 104MS, NL AXIS, nonspecific ST T wave Chg, Unchanged from - 05/31/17 XRAY: chest - CARDIOMEGALY, NO FAILURE Departure - Departure Clinical Impression: Hypotension, Angina 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 Copy, Patient Portal Self Enrollment Instructions: DI for Angina, DI for Hypotension Diet: resume usual diet Activity: increase activity as tolerated Referrals: Mejia Combs III, MD [Primary Care Provider] - 1-2 Days Home Medications: Ambulatory Orders Aspirin [Aspirin Adult Low Dose] 81 mg PO DAILY 08/25/14 Finasteride 5 mg PO DAILY 08/25/14 Metoprolol Tartrate 100 mg PO BIDFD 08/25/14 Pravastatin Sodium [Pravachol] 80 mg PO BEDTIME 08/25/14 glipiZIDE [Glucotrol] 2.5 mg PO DAILY 08/25/14 Levothyroxine Sodium [Synthroid] 75 mcg PO ACBK 01/02/15 Multiple Vitamins W/ Minerals [One Daily Mens] 1 tab PO DAILY 01/02/15 Tamsulosin [Flomax] 0.4 mg PO DAILY 01/02/15 Cephalexin Monohydrate [Keflex] 500 mg PO DAILY 06/01/15 Lisinopril 40 mg PO DAILY 06/01/15 Hydrochlorothiazide 12.5 mg PO DAILY #0 06/02/15 Saxagliptin-Metformin HCl [Kombiglyze Xr 2.5-1000 mg] 1 tab PO BIDFD 12/28/15 Amlodipine Besylate 10 mg PO DAILY 06/22/16
[2017-09-28] MEDS ORDERED: SODIUM CHLORIDE 0.9% 1000ML 1,000 ML IVS ONE (16:41)
[2017-09-28 17:26] VITALS: O2SAT 95
[2017-09-28 18:42] VITALS: BP 116/55
== END 2017-09-28 18:28 | disposition home or self-care (01) ==
LOC: ER 14:48
DX: I25.119 Atherosclerotic heart disease of native coronary artery with unspecified angina pectoris (principal); I95.9 Hypotension, unspecified; Z95.1 Presence of aortocoronary bypass graft; Z95.0 Presence of cardiac pacemaker; I11.0 Hypertensive heart disease with heart failure; I50.9 Heart failure, unspecified; E86.9 Volume depletion, unspecified; E11.9 Type 2 diabetes mellitus without complications; Z79.82 Long term (current) use of aspirin; Z79.84 Long term (current) use of oral hypoglycemic drugs
CPT/HCPCS: 36415; 71045; 80048; 80076; 81001; 82550; 82553; 83880; 84484; 85025; 85610; 85730; 93005; 94760; J7030

== ENCOUNTER → 2017-10-18 | Outpatient (CLI) | payer MEDICARE | LOC: GMAL 14:51 | PROVIDERS: ATTEND Family Medicine | DX: N30.01 Acute cystitis with hematuria (principal) ==

== ENCOUNTER 2017-10-21 04:08 | Emergency (ER) | payer MEDICARE ==
[2017-10-21] MEDS ORDERED: LIDOCAINE 2 % GEL 5 ML TUBE TOP ONE (04:26)
--- NOTE | 2017-10-21 04:28 | ED.PDOC ---
History of Present Illness - General Chief Complaint: Problem Stated Complaint: Can't Urinate Time Seen by Provider: 10/21/17 04:19 Source: patient Exam Limitations: no limitations - History of Present Illness Initial Comments: patient comes in today for urinary retention and abdominal pain. Patient has had a long history of urinary tract problems including prostatitis that was diagnosed a week ago. Patient was placed on antibiotics Levaquin and amoxicillin. He continues to have difficulties. Patient states that although he's had some difficulty with having a strong urinary stream since this began he has been unable to urinate at all since yesterday. Patient is having abdominal discomfort and sometimes severe pain with sharp shooting pains in the suprapubic area. Patient's had some fever earlier in the week up to 1012. He' s had no fever or chills last 24 hours. He's had no nausea or emesis. He states he had been taking ibuprofen for the pain but then realized he was taking too much as it was causing some gastritis. Timing/Duration: week Quality: severe, intermittent, stabbing Onset Location: suprapubic Radiation: none Activites at Onset: none Prior abdominal problems: none Allergies/Adverse Reactions: Allergies Nitrofurantoin [From Macrobid] Allergy (Unknown, Verified 10/11/15 06:37) Sulfamethoxazole w/Trimethoprim [From Bactrim] Allergy (Unknown, Verified 06:37) Diltiazem Adverse Reaction (Unknown, Verified 10/11/15 06:37) bradycardia Solifenacin [From Vesicare] Adverse Reaction (Unknown, Verified 10/11/15 06:37) constipation Home Medications: Ambulatory Orders Aspirin [Aspirin Adult Low Dose] 81 mg PO DAILY 08/25/14 Finasteride 5 mg PO DAILY 08/25/14 Metoprolol Tartrate 100 mg PO BIDFD 08/25/14 Pravastatin Sodium [Pravachol] 80 mg PO BEDTIME 08/25/14 glipiZIDE [Glucotrol] 2.5 mg PO DAILY 08/25/14 Levothyroxine Sodium [Synthroid] 75 mcg PO ACBK 01/02/15 Multiple Vitamins W/ Minerals [One Daily Mens] 1 tab PO DAILY 01/02/15 Tamsulosin [Flomax] 0.4 mg PO DAILY 01/02/15 Cephalexin Monohydrate [Keflex] 500 mg PO DAILY 06/01/15 Lisinopril 40 mg PO DAILY 06/01/15 Hydrochlorothiazide 12.5 mg PO DAILY #0 06/02/15 Saxagliptin-Metformin HCl [Kombiglyze Xr 2.5-1000 mg] 1 tab PO BIDFD 12/28/15 Amlodipine Besylate 10 mg PO DAILY 06/22/16 Review of Systems - Review of Systems Constitutional: States: see HPI, chills, fever EENTM: States: no symptoms reported. Denies: eye pain, ear pain, throat pain Respiratory: States: no symptoms reported. Denies: cough, short of breath, wheezing Cardiology: States: no symptoms reported. Denies: chest pain, edema, palpitations Gastrointestinal/Abdominal: States: abdominal pain. Denies: constipation, diarrhea, nausea, vomiting Genitourinary: States: see HPI Musculoskeletal: States: no symptoms reported Skin: States: no symptoms reported Past Medical History (General) - Patient Medical History Hx Seizures: No Hx Stroke: No Hx Dementia: No Hx Asthma: No Hx of COPD: No Hx Cardiac Disorders: Yes - CABG Hx Congestive Heart Failure: Yes Hx Pacemaker: Yes Hx Hypertension: Yes Hx Thyroid Disease: Yes Hx Diabetes: Yes Hx Gastroesophageal Reflux: Yes - recent onset Hx Renal Disease: Yes - chronic UTI's Hx Cancer: No Hx of HIV: No Hx Hepatitis C: No Hx MRSA: No MRSA Source:: Sputum Surgical History: coronary bypass surgery, pacemaker, tonsillectomy, other - Vaccination History Hx Tetanus, Diphtheria Vaccination: No Hx Influenza Vaccination: Yes Hx Pneumococcal Vaccination: Yes Immunizations Up to Date: No - Social History Hx Tobacco Use: Yes Hx Chewing Tobacco Use: No Hx Alcohol Use: No Hx Substance Use: No Hx Substance Use Treatment: No Hx Depression: No Feels Threatened In Home Enviroment: No Feels Threatened In a Relationship: No Hx Physical Abuse: No Hx Emotional Abuse: No Hx Suspected Abuse: No - Activities of Daily Living Hospice Agency (if applicable):: None - Female History Patient : No - Triage Comment ED Triage Comment: Pt states that he has Dr. Combs three times this week for prostatitis. Pt states that he has been able to slowly drain his bladder but since yesterday afternoon he has been unable to urinate at all. Family Medical History - Family History Father Family History: Unknown Living Status: Age at (years of age): 66 Cause of : infectious process Hx Family Asthma: No Hx Family Congestive Heart Failure: No Hx Family Hypertension: Yes Hx Family Stroke: No Hx Cardiac Disease: Yes Hx Family Diabetes: Yes Hx Family Cancer: Yes Mother Living Status: Age at (years of age): 79 Cause of : Alzheimer's Hx Family Congestive Heart Failure: No Hx Family Hypertension: No Hx Family Stroke: Yes Hx Cardiac Disease: Yes Hx Family Diabetes: No Hx Family Cancer: No Hx Family;Other: Family Hx of Alpha1 antitrypsin deficiency Physical Exam - Physical Exam General Appearance: Alert, Restless Eyes, Ears, Nose, Throat Exam: PERRL/EOMI, normal ENT inspection Neck: non-tender, full range of motion, supple Cardiovascular/Respiratory: regular rate, rhythm, no M/R/G, normal peripheral pulses, no JVD, normal breath sounds, no respiratory distress Gastrointestinal/Abdominal: soft, distended, other - bladder distended to the umbilicus, positive BS Extremity: normal range of motion, non-tender Neurologic: alert, oriented x 3 Progress - Progress Progress: 10/21/17 05:29 10/21/17 04:24 Catheter:[facility] QSHIFT Laboratory Results WBC 8.5 K/mm3 (4.8-10.8) 10/21/17 04:24 RBC 4.16 M/mm3 (4.70-6.10) L 10/21/17 04:24 Hgb 12.7 gm/dL (14.0-18.0) L 10/21/17 04:24 Hct 37.5 % (42.0-52.0) L 10/21/17 04:24 MCV 90.2 fl (80.0-94.0) 10/21/17 04:24 MCH 30.5 pg (27.0-31.0) 10/21/17 04:24 MCHC 33.9 g/dL (33.0-37.0) 10/21/17 04:24 RDW 13.4 % (11.5-14.5) 10/21/17 04:24 Plt Count 224 K/mm3 (130-400) 10/21/17 04:24 MPV 8.4 fl (7.40-10.4) 10/21/17 04:24 Absolute Neuts (auto) 5.10 K/uL (1.8-6.8) 10/21/17 04:24 Absolute Lymphs (auto) 2.10 K/uL (1.0-3.4) 10/21/17 04:24 Absolute Monos (auto) 0.90 K/uL (0.2-0.8) H 10/21/17 04:24 Absolute Eos (auto) 0.40 K/uL (0.0-0.4) 10/21/17 04:24 Absolute Basos (auto) 0.00 K/uL (0.0-0.1) 10/21/17 04:24 Neutrophils % 60.3 % (42.0-78.0) 10/21/17 04:24 Lymphocytes % 24.4 % (20.0-50.0) 10/21/17 04:24 Monocytes % 10.2 % (2.0-9.0) H 10/21/17 04:24 Eosinophils % 4.5 % (1.0-5.0) 10/21/17 04:24 Basophils % 0.6 % (0.0-2.0) 10/21/17 04:24 Sodium 135 mmol/L (135-145) 10/21/17 04:24 Potassium 4.2 mmol/L (3.6-5.0) 10/21/17 04:24 Chloride 104 mmol/L (101-111) 10/21/17 04:24 Carbon Dioxide 23 mmol/L (21-31) 10/21/17 04:24 Anion Gap 12.2 (12-18) 10/21/17 04:24 BUN 14 mg/dL (7-18) 10/21/17 04:24 Creatinine 0.76 mg/dL (0.6-1.3) 10/21/17 04:24 BUN/Creatinine Ratio 18.4 (10-20) 10/21/17 04:24 Random Glucose 201 mg/dL (70-105) H 10/21/17 04:24 Serum Osmolality 276.3 mOsm/L (275-295) 10/21/17 04:24 Lactic Acid 1.8 mmol/L (0.5-2.2) 10/21/17 04:24 Calcium 9.3 mg/dL (8.4-10.2) 10/21/17 04:24 Total Bilirubin 0.2 mg/dL (0.2-1.0) 10/21/17 04:24 AST 17 IU/L (10-42) 10/21/17 04:24 ALT 12 IU/L (10-60) 10/21/17 04:24 Alkaline Phosphatase 67 IU/L (42-121) 10/21/17 04:24 Serum Total Protein 6.3 gm/dL (6.4-8.2) L 10/21/17 04:24 Albumin 3.2 g/dl (3.2-5.5) 10/21/17 04:24 Globulin 3.1 gm/dL (2.3-3.5) 10/21/17 04:24 Albumin/Globulin Ratio 1.0 (1.1-1.9) L 10/21/17 04:24 Urine Color Yellow (Yellow) 10/21/17 04:38 Urine Appearance Clear (Clear) 10/21/17 04:38 Urine pH 5.5 (4.5-7.8) 10/21/17 04:38 Ur Specific [place] 1.020 (1.005-1.030) 10/21/17 04:38 Urine Protein Negative mg/dL 10/21/17 04:38 Urine Glucose (UA) Negative mg/dL (Negative) 10/21/17 04:38 Urine Ketones Negative mg/dL (NEGATIVE) 10/21/17 04:38 Urine Blood Trace-intact (Negative) H 10/21/17 04:38 Urine Nitrite Negative 10/21/17 04:38 Urine Bilirubin Negative (NEGATIVE) 10/21/17 04:38 Urine Urobilinogen 1.0 mg/dL (0.2-1.0) 10/21/17 04:38 Ur Leukocyte Esterase Negative (Negative) 10/21/17 04:38 Urine RBC 10-20 /hpf H 10/21/17 04:38 Urine WBC 3-5 /hpf H 10/21/17 04:38 Ur Epithelial Cells 0 /hpf 10/21/17 04:38 Urine Bacteria 0 10/21/17 04:38 spoke with patient and results given. He states he has had to have a catheter before and is comfortable with the care. We explained WBC and UA look to be improving and he may just need some time with the catheter again. [facility] to remain and he should present to clinic on Monday to discuss if able to have trial of removal. Departure - Departure Clinical Impression: Retention of urine Disposition: Discharge to Home or Self Care Condition: Fair Departure Forms: ED Discharge - Pt. Copy, Patient Portal Self Enrollment Instructions: DI for Urinary Retention in Men Diet: regular diet Referrals: Mejia Combs III, MD [Primary Care Provider] - 1-2 Weeks Home Medications: Ambulatory Orders Aspirin [Aspirin Adult Low Dose] 81 mg PO DAILY 08/25/14 Finasteride 5 mg PO DAILY 08/25/14 Metoprolol Tartrate 100 mg PO BIDFD 08/25/14 Pravastatin Sodium [Pravachol] 80 mg PO BEDTIME 08/25/14 glipiZIDE [Glucotrol] 2.5 mg PO DAILY 08/25/14 Levothyroxine Sodium [Synthroid] 75 mcg PO ACBK 01/02/15 Multiple Vitamins W/ Minerals [One Daily Mens] 1 tab PO DAILY 01/02/15 Tamsulosin [Flomax] 0.4 mg PO DAILY 01/02/15 Cephalexin Monohydrate [Keflex] 500 mg PO DAILY 06/01/15 Lisinopril 40 mg PO DAILY 06/01/15 Hydrochlorothiazide 12.5 mg PO DAILY #0 06/02/15 Saxagliptin-Metformin HCl [Kombiglyze Xr 2.5-1000 mg] 1 tab PO BIDFD 12/28/15 Amlodipine Besylate 10 mg PO DAILY 06/22/16 Additional Instructions: Catheter care instructions and patient should follow up on Monday with PCP. Return to ER for abdominal pain, disruption of urine flow, temp >100.5, or emesis.
[2017-10-21 05:16] VITALS: TEMP 97.2
[2017-10-21 05:54] VITALS: BP 165/85; O2SAT 96
== END 2017-10-21 05:54 | disposition home or self-care (01) ==
LOC: ER 04:08
DX: R33.9 Retention of urine, unspecified (principal); I11.0 Hypertensive heart disease with heart failure; I50.9 Heart failure, unspecified; E11.9 Type 2 diabetes mellitus without complications; E07.9 Disorder of thyroid, unspecified; K21.9 Gastro-esophageal reflux disease without esophagitis; Z95.1 Presence of aortocoronary bypass graft; Z95.0 Presence of cardiac pacemaker; Z87.891 Personal history of nicotine dependence; Z79.82 Long term (current) use of aspirin; Z79.84 Long term (current) use of oral hypoglycemic drugs

== ENCOUNTER → 2018-01-12 | Outpatient (CLI) | payer MEDICARE | LOC: GMAL 10:43 | PROVIDERS: ATTEND Family Medicine | DX: N30.01 Acute cystitis with hematuria (principal) ==

== ENCOUNTER → 2018-02-02 | Outpatient (CLI) | payer MEDICARE | LOC: GMAL 10:39 | PROVIDERS: ATTEND Family Medicine | DX: D50.9 Iron deficiency anemia, unspecified (principal); E03.9 Hypothyroidism, unspecified ==

== ENCOUNTER 2018-02-11 02:42 | Emergency (ER) | payer MEDICARE ==
[2018-02-11 03:03] VITALS: BP 176/78; TEMP 97.4
[2018-02-11] MEDS ORDERED: cefTRIAXone SODIUM 1 GM VIAL IM ONE (03:09)
--- NOTE | 2018-02-11 03:13 | ED.PDOC ---
History of Present Illness - General Chief Complaint: Skin/Abrasion/Tear Stated Complaint: "Lump on neck" Time Seen by Provider: 02/11/18 03:09 Source: patient Exam Limitations: no limitations - History of Present Illness Initial Comments: patient comes in today with 1 day history of worsening red hot bump on the back of his neck. Patient states he had this before but by the time he went to the doctor noted decreased in size and was better. At that time they perhaps thought perhaps it was a lymph node. Patient noticed that he had a slight irritation there Monday morning but as the day progresses worsened. This evening it woke him up from sleep secondary to pain and significant increased swelling. He is otherwise had some cough and congestion that he has been on Levaquin for for the past week. He's had no fever, chills, or injury to the area that he is aware of. He has a significant past medical history of diabetes mellitus type 2, hypertension, hyperlipidemia, hypothyroidism, coronary artery disease, and atrial fibrillation. Timing/Duration: getting worse Severity: moderate Improving Factors: nothing Worsening Factors: nothing Associated Symptoms: denies symptoms Allergies/Adverse Reactions: Allergies Nitrofurantoin [From Macrobid] Allergy (Unknown, Verified 02/11/18 03:11) Sulfamethoxazole w/Trimethoprim [From Bactrim] Allergy (Unknown, Verified 03:11) Diltiazem Adverse Reaction (Unknown, Verified 02/11/18 03:11) bradycardia Solifenacin [From Vesicare] Adverse Reaction (Unknown, Verified 02/11/18 03:11) constipation Home Medications: Ambulatory Orders Aspirin [Aspirin Adult Low Dose] 81 mg PO DAILY 08/25/14 Finasteride 5 mg PO DAILY 08/25/14 Metoprolol Tartrate 100 mg PO BIDFD 08/25/14 Pravastatin Sodium [Pravachol] 80 mg PO BEDTIME 08/25/14 glipiZIDE [Glucotrol] 2.5 mg PO DAILY 08/25/14 Levothyroxine Sodium [Synthroid] 75 mcg PO ACBK 01/02/15 Multiple Vitamins W/ Minerals [One Daily Mens] 1 tab PO DAILY 01/02/15 Tamsulosin [Flomax] 0.4 mg PO DAILY 01/02/15 Cephalexin Monohydrate [Keflex] 500 mg PO DAILY 06/01/15 Lisinopril 40 mg PO DAILY 06/01/15 Hydrochlorothiazide 12.5 mg PO DAILY #0 06/02/15 Saxagliptin-Metformin HCl [Kombiglyze Xr 2.5-1000 mg] 1 tab PO BIDFD 12/28/15 Amlodipine Besylate 10 mg PO DAILY 06/22/16 Levofloxacin [Levaquin] 750 mg PO DAILY #5 tablet 12/11/17 Cephalexin Monohydrate [Keflex] 500 mg PO TID 7 Days #21 cap 02/11/18 Review of Systems - Review of Systems Constitutional: States: no symptoms reported. Denies: chills, fever EENTM: States: no symptoms reported Respiratory: States: cough. Denies: short of breath, wheezing Cardiology: States: no symptoms reported. Denies: chest pain, palpitations Gastrointestinal/Abdominal: States: no symptoms reported Genitourinary: States: no symptoms reported Skin: States: see HPI Neurological: States: no symptoms reported Past Medical History (General) - Patient Medical History Hx Seizures: No Hx Stroke: No Hx Dementia: No Hx Asthma: No Hx of COPD: No Hx Cardiac Disorders: Yes - CABG Hx Congestive Heart Failure: No Hx Pacemaker: Yes Hx Hypertension: Yes Hx Thyroid Disease: Yes Hx Diabetes: Yes Hx Gastroesophageal Reflux: Yes - recent onset Hx Renal Disease: Yes - chronic UTI's Hx Cancer: No Hx of HIV: No Hx Hepatitis C: No Hx MRSA: No MRSA Source:: Sputum Surgical History: coronary bypass surgery, tonsillectomy, other - Vaccination History Hx Tetanus, Diphtheria Vaccination: No Hx Influenza Vaccination: No Hx Pneumococcal Vaccination: No - Social History Hx Tobacco Use: Yes Hx Chewing Tobacco Use: No Hx Alcohol Use: No Hx Substance Use: No Hx Substance Use Treatment: No Hx Depression: No Hx Physical Abuse: No Hx Emotional Abuse: No Hx Suspected Abuse: No - Female History Patient : No Family Medical History - Family History Father Family History: Unknown Living Status: Age at (years of age): 66 Cause of : infectious process Hx Family Asthma: No Hx Family Congestive Heart Failure: No Hx Family Hypertension: Yes Hx Family Stroke: No Hx Cardiac Disease: Yes Hx Family Diabetes: Yes Hx Family Cancer: Yes Mother Family History: Unknown Living Status: Age at (years of age): 79 Cause of : Alzheimer's Hx Family Congestive Heart Failure: No Hx Family Hypertension: No Hx Family Stroke: Yes Hx Cardiac Disease: Yes Hx Family Diabetes: No Hx Family Cancer: No Hx Family;Other: Family Hx of Alpha1 antitrypsin deficiency Physical Exam - Physical Exam General Appearance: Alert, No apparent distress Eyes, Ears, Nose, Throat Exam: PERRL/EOMI, normal ENT inspection, TMs normal, pharynx normal Neck: other - 4 cm area of induration without fluctulance with calor, small 4 1 cm areas superior to that Progress - Results/Orders Results/Orders: Laboratory Results WBC 10.5 K/mm3 (4.8-10.8) 02/11/18 03:09 RBC 4.45 M/mm3 (4.70-6.10) L 02/11/18 03:09 Hgb 13.6 gm/dL (14.0-18.0) L 02/11/18 03:09 Hct 40.3 % (42.0-52.0) L 02/11/18 03:09 MCV 90.7 fl (80.0-94.0) 02/11/18 03:09 MCH 30.5 pg (27.0-31.0) 02/11/18 03:09 MCHC 33.8 g/dL (33.0-37.0) 02/11/18 03:09 RDW 13.6 % (11.5-14.5) 02/11/18 03:09 Plt Count 251 K/mm3 (130-400) 02/11/18 03:09 MPV 9.2 fl (7.40-10.4) 02/11/18 03:09 Absolute Neuts (auto) 6.50 K/uL (1.8-6.8) 02/11/18 03:09 Absolute Lymphs (auto) 2.50 K/uL (1.0-3.4) 02/11/18 03:09 Absolute Monos (auto) 1.10 K/uL (0.2-0.8) H 02/11/18 03:09 Absolute Eos (auto) 0.40 K/uL (0.0-0.4) 02/11/18 03:09 Absolute Basos (auto) 0.00 K/uL (0.0-0.1) 02/11/18 03:09 Neutrophils % 61.7 % (42.0-78.0) 02/11/18 03:09 Lymphocytes % 23.7 % (20.0-50.0) 02/11/18 03:09 Monocytes % 10.4 % (2.0-9.0) H 02/11/18 03:09 Eosinophils % 3.8 % (1.0-5.0) 02/11/18 03:09 Basophils % 0.4 % (0.0-2.0) 02/11/18 03:09 Departure - Departure Clinical Impression: Cellulitis Qualifiers: Site of cellulitis: neck Qualified Code(s): L03.221 - Cellulitis of neck Disposition: Discharge to Home or Self Care Condition: Fair Departure Forms: ED Discharge - Pt. Copy, Patient Portal Self Enrollment Instructions: DI for Abrasion Referrals: Mejia Combs III, MD [Primary Care Provider] - 1-2 Weeks Home Medications: Ambulatory Orders Aspirin [Aspirin Adult Low Dose] 81 mg PO DAILY 08/25/14 Finasteride 5 mg PO DAILY 08/25/14 Metoprolol Tartrate 100 mg PO BIDFD 08/25/14 Pravastatin Sodium [Pravachol] 80 mg PO BEDTIME 08/25/14 glipiZIDE [Glucotrol] 2.5 mg PO DAILY 08/25/14 Levothyroxine Sodium [Synthroid] 75 mcg PO ACBK 01/02/15 Multiple Vitamins W/ Minerals [One Daily Mens] 1 tab PO DAILY 01/02/15 Tamsulosin [Flomax] 0.4 mg PO DAILY 01/02/15 Cephalexin Monohydrate [Keflex] 500 mg PO DAILY 06/01/15 Lisinopril 40 mg PO DAILY 06/01/15 Hydrochlorothiazide 12.5 mg PO DAILY #0 06/02/15 Saxagliptin-Metformin HCl [Kombiglyze Xr 2.5-1000 mg] 1 tab PO BIDFD 12/28/15 Amlodipine Besylate 10 mg PO DAILY 06/22/16 Levofloxacin [Levaquin] 750 mg PO DAILY #5 tablet 12/11/17 Cephalexin Monohydrate [Keflex] 500 mg PO TID 7 Days #21 cap 02/11/18 Additional Instructions: follow up on Monday with PCP to recheck area. Return to ER for temp >100.5, worsening of lesion
[2018-02-11] MEDS ORDERED: LIDOCAINE 1% 2 ML VIAL INJ ONE (03:29)
[2018-02-11 03:56] VITALS: O2SAT 96
== END 2018-02-11 03:56 | disposition home or self-care (01) ==
LOC: ER 02:42
DX: L03.221 Cellulitis of neck (principal); I10 Essential (primary) hypertension; K21.9 Gastro-esophageal reflux disease without esophagitis; E11.9 Type 2 diabetes mellitus without complications; E03.9 Hypothyroidism, unspecified; I25.10 Atherosclerotic heart disease of native coronary artery without angina pectoris; E78.5 Hyperlipidemia, unspecified; I48.91 Unspecified atrial fibrillation; Z95.1 Presence of aortocoronary bypass graft; Z87.891 Personal history of nicotine dependence; Z87.440 Personal history of urinary (tract) infections; Z79.82 Long term (current) use of aspirin; Z79.899 Other long term (current) drug therapy; Z88.8 Allergy status to other drugs, medicaments and biological substances
CPT/HCPCS: 36415; 85025; J0696

== ENCOUNTER → 2018-03-19 | Outpatient (CLI) | payer MEDICARE ==
--- NOTE | 2018-03-19 16:35 | CT ---
EXAM DESCRIPTION: Head CLINICAL HISTORY: DIZZINESS COMPARISON: None available TECHNIQUE: Noncontrast head CT was performed with routine protocol. FINDINGS: Normal low-white matter differentiation. Ventricles and sulci are normal for age. No high density hemorrhage, focal edema or shift of the midline. No sulcal effacement. Normal orbital contents. Basilar cisterns appear clear. Intact calvarium with no fracture or lytic lesion. Normal aeration of tympanic cavities and mastoid air cells. Fluid and mucosal thickening are seen in the left maxillary sinus. Skull base appears intact. Symmetrical internal auditory canals. IMPRESSION: No acute intracranial pathologic process. This exam was performed according to our departmental dose-optimization program, which includes automated exposure control, adjustment of the mA and/or kV according to patient size and/or use of iterative reconstruction technique. Total DLP equals 859.97 mGycm. Electronically signed by: Kasi Rodriguez MD 03/19/2018 4:34 PM [employer] ANALYST
== END ==
LOC: CT 15:51
PROVIDERS: ATTEND Physician Assistant
DX: R42 Dizziness and giddiness (principal)

== ENCOUNTER → 2018-04-02 | Outpatient (CLI) | payer MEDICARE | LOC: GMAL 14:22 | PROVIDERS: ATTEND Family Medicine | DX: I50.9 Heart failure, unspecified (principal); R42 Dizziness and giddiness ==

== ENCOUNTER 2018-05-03 11:50 | Inpatient (IN) | payer MEDICARE ==
--- NOTE | 2018-05-03 12:19 | HP ---
SUPERVISING PHYSICIAN: Mark Nair M.D. CHIEF COMPLAINT: Tooth pain. HISTORY OF PRESENT ILLNESS: This is a 82 year-old male patient who started having some pain in his right upper jaw area on Monday. He got in to see his dentist, Dr. Jordan, today and one of his right upper molars was abscessed to the point that she sent him to see Dr. Combs, his primary care physician. He had been on antibiotics for an upper respiratory infection and the right side of his face was still quite swollen. Dr. Combs called me for an admission to the hospital due to right upper molar tooth abscess failed outpatient antibiotics. It is to be noted that since March 24 the patient has also had some near syncopal episodes that had been worked up over the last month and a half. His medications have been reviewed and he was to see Dr. Rodriguez in [place] today. He does have a pacemaker and they were not sure if it was due to hypotensive episodes or some other neurological problem, but he is continuing to have a workup for that. Dr. Combs asked if I would monitor his heart while he is here in the hospital to see if he had a new episode cardiac [place]. PAST MEDICAL HISTORY: 1. Coronary artery disease. 2. Chronic obstructive pulmonary disease. 3. Hyperlipidemia. 4. Hypertension. 5. Benign prostatic hypertrophy. 6. Diabetes mellitus type 2. 7. Hypothyroidism. 8. Disc disorder with radiculopathy. 9. Obstructive sleep apnea but does not use his CPAP. 10. Prostate cancer with reactive seed implant. 11. Gastroesophageal reflux disease. 12. Postherpetic neuralgia. 13. Bladder cancer. PAST SURGICAL HISTORY: 1. Appendectomy. 2. Cholecystectomy. 3. Tonsillectomy and adenoidectomy. 4. Transurethral resection of the prostate. 5. Bladder surgery. 6. Coronary artery bypass graft. OUTPATIENT MEDICATIONS: Per the EMR and awaiting verification. ALLERGIES: MACROBID, SULFA DRUGS, DILTIAZEM, INVOKANA AND VESICARE. FAMILY HISTORY: Positive for coronary artery disease, prostatitis, pneumonia, hypertension, hyperlipidemia, Alzheimer's. SOCIAL HISTORY: He is retired. 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 He is . He has 2 children. He quit cigarette smoking in 1984. He drinks alcohol very rarely. He denies any illicit drug use. REVIEW OF SYSTEMS: Negative except as per History of Present Illness. PHYSICAL EXAMINATION: VITAL SIGNS: Temperature 98, heart rate 78, blood pressure 164/80, respiratory rate 18, O2 sat 96% on room air. GENERAL: This is an 82 year-old male patient who is lying in his hospital bed. He looks like he is in moderate pain. HEENT: Normocephalic and atraumatic. Pupils are equal and reactive. His right jaw and cheek area is very edematous with erythema. It is very tender to palpation. RESPIRATORY: Essentially clear to auscultation bilaterally. CHEST: There is equal rise and fall of the chest with inspiration and expiration. CARDIOVASCULAR: Regular rate and rhythm. GASTROINTESTINAL: Abdomen is soft, nondistended, non-tender. Bowel sounds are positive. EXTREMITIES: No clubbing, cyanosis or edema. NEUROLOGIC: He is awake, alert and oriented times three. LABORATORY: WBCs are 11,500 with hemoglobin 13.1, hematocrit 39.9. Electrolytes are basically within normal limits. Glucose is elevated at 192, serum osmolality is 274.7. Blood cultures are pending. All other labs and films have been reviewed via the EMR. ASSESSMENT: 1. Dental abscess to the right upper molar, failed outpatient treatment on 2 oral antibiotics. 2. Near syncopal episodes with no loss of consciousness, and of unknown etiology. 3. Mild leukocytosis secondary to #1. 4. Diabetes mellitus type 2. 5. Hypertension that is controlled on medications. 6. Obstructive sleep apnea, although he does not wear his CPAP machine. 7. Benign prostatic hypertrophy with chronic urinary tract infections on Keflex daily. 8. History of bladder cancer that is stable. 9. History of prostate cancer that is stable. 10. History of atrial fibrillation on Eliquis therapy. 11. History of chronic obstructive pulmonary disease without acute exacerbation. 12. Gastroesophageal reflux disease. PLAN: We will admit the patient to the hospital. He has 2 additional doses of Levaquin that I will finish. I started him on Zosyn. I will repeat his lab in the morning as well as I have added an ESR and a CRP. I will also order a CAT scan of his jaw for in the morning. He will get some fluid overnight. I may need to talk to Dr. Lindsey, Infectious Diseases in [place] tomorrow about continuing him on antibiotics as an outpatient. We will continue to monitor closely and follow as needed. #[id number] [facility]
[2018-05-03] MEDS ORDERED: SODIUM CHLORIDE 0.9% (FLUSH) 10 ML SYG IV PRN (12:36)
[2018-05-03] MEDS ORDERED: PIPERACILLIN/TAZOBACTAM 3.375 GM in SODIUM CHLORIDE 0.9% 100ML 100 ML IVPB ONE (12:38)
[2018-05-03] MEDS ORDERED: PIPERACILLIN/TAZOBACTAM 3.375 GM VIAL IVPB ONE ×3 (12:54→19:54)
[2018-05-03] MEDS ORDERED: SODIUM CHLORIDE 0.9% 100ML 100 ML IVPB ONE ×3 (12:55→19:54)
[2018-05-03] MEDS: IV SET AND CAP CHANGE INJ INJ SCH (14:00)
[2018-05-03] MEDS: MORPHINE SULFATE INJ 10 MG/ML VIAL IV PRN ×2 (15:42→17:34)
[2018-05-03] MEDS: PIPERACILLIN/TAZOBACTAM 3.375 GM in SODIUM CHLORIDE 0.9% 100ML 100 ML IVPB SCH ×2 (16:59→23:45)
[2018-05-03] MEDS ORDERED: ALUMINUM & MAGNESIUM HYDROXIDE 30 ML UD PO PRN (17:31)
[2018-05-03] MEDS ORDERED: HYDROcodone 7.5MG/APAP 325MG 1 EA TAB PO ONE (18:25)
[2018-05-03] MEDS ORDERED: DEXTROSE 50% 25 GM/50 ML SYG IV PRN (19:46)
[2018-05-03] MEDS ORDERED: GLUCAGON INJ 1 MG VIAL SUBCU PRN (19:46)
[2018-05-03] MEDS ORDERED: APIXABAN 2.5 MG TAB PO ONE (19:54)
[2018-05-03] MEDS ORDERED: SODIUM CHLORIDE 0.45% 1000ML 1,000 ML IVS ONE (20:44)
[2018-05-03] MEDS ORDERED: ENOXAPARIN SODIUM 40 MG/0.4 ML SYG SUBCU SCH (21:00)
[2018-05-03] MEDS: TAMSULOSIN 0.4 MG CAP PO SCH (21:19)
[2018-05-03] MEDS: INSULIN LISPRO 100 UNITS/ML PEN SUBCU SCH (21:19)
[2018-05-03] MEDS: NON-FORMULARY MEDICATION 1 EA MIS (Apixaban [Eliquis] 5 MG) PO SCH (21:19)
[2018-05-04] MEDS: MORPHINE SULFATE INJ 10 MG/ML VIAL IV PRN (02:14)
[2018-05-04] MEDS: HYDROcodone 7.5MG/APAP 325MG 1 EA TAB PO PRN ×5 (02:42→22:02)
[2018-05-04] MEDS: LEVOTHYROXINE SODIUM 0.075 MG TAB PO SCH (06:21)
[2018-05-04] MEDS ORDERED: NON-FORMULARY MEDICATION 1 EA MIS (Metoprolol Tartrate [Metoprolol Tartrate] 50 MG) PO SCH (07:30)
[2018-05-04] MEDS ORDERED: PIPERACILLIN/TAZOBACTAM 3.375 GM VIAL IVPB ONE ×3 (07:37→19:51)
[2018-05-04] MEDS ORDERED: METOPROLOL TARTRATE 50 MG TAB ONE (07:37)
[2018-05-04] MEDS ORDERED: SODIUM CHLORIDE 0.9% 100ML 0 ML IVPB ONE (07:37)
[2018-05-04] MEDS: PIPERACILLIN/TAZOBACTAM 3.375 GM in SODIUM CHLORIDE 0.9% 100ML 100 ML IVPB SCH ×2 (07:49→16:33)
[2018-05-04] MEDS: SAXAGLIPTIN PO SCH ×2 (07:50→17:28)
[2018-05-04] MEDS: METFORMIN HCL PO SCH ×2 (07:50→17:28)
[2018-05-04] MEDS: INSULIN LISPRO 100 UNITS/ML PEN SUBCU SCH ×4 (08:01→20:58)
[2018-05-04] MEDS ORDERED: LISINOPRIL 5 MG TAB ONE (08:43)
[2018-05-04] MEDS ORDERED: APIXABAN 2.5 MG TAB PO ONE (08:43)
[2018-05-04] MEDS: NON-FORMULARY MEDICATION 1 EA MIS (Apixaban [Eliquis] 5 MG) PO SCH (08:53)
[2018-05-04] MEDS: CEPHALEXIN MONOHYDRATE 500 MG CAP PO SCH (08:54)
[2018-05-04] MEDS: FINASTERIDE 5 MG TAB PO SCH (08:54)
[2018-05-04] MEDS: LISINOPRIL 10 MG TAB PO SCH (08:55)
[2018-05-04] MEDS ORDERED: glipiZIDE 5 MG TAB PO SCH (09:00)
[2018-05-04] MEDS ORDERED: DILTIAZEM HCL COATED BEADS 120 MG PO SCH (09:00)
--- NOTE | 2018-05-04 11:00 | CT ---
EXAM DESCRIPTION: Maxillofacial w/wo Contrast: Computed Tomography. CLINICAL HISTORY: 82 years Male cellulitis, right upper molar disease. COMPARISON: CT scan of the head without contrast 03/19/2018. TECHNIQUE: Spiral, axial 2.5 x 2.5 scans through the maxillofacial bones and soft tissues without and with IV contrast. Coronal and sagittal 2.0 mm reconstructions. Total Exam DLP: 1476.95 mGy-cm. This exam was performed according to our departmental CT dose-optimization program which includes automated exposure control, adjustment of the mA and/or kV according to patient size and/or use of iterative reconstruction technique; to reduce radiation dose to as low as reasonably achievable (ALARA). FINDINGS: Fatty stranding and fascial thickening in the right anterolateral face from the level of the left right maxillary sinus inferior to the soft tissue lateral to the right right mandible. Extending posterior to the anterior parotid gland. Parotid duct not dilated. Soft tissue thickening also abutting the right lateral maxillary bone at the level of the maxillary teeth buds, but the lateral cortex appears intact. The right maxillary first and second premolars appeared to be fractured at the crown in the AP axis. First and third maxillary right molars have been removed with abnormal appearance of the maxillary right second molar, and lucency around the roots. Small complex fluid collection, not greater than 1 cm, abutting the lateral maxillary cortex. Significant amount of mucoperiosteal thickening in the right maxillary antrum with no definite air-fluid level. Minimal mucoperiosteal thickening and/or polyp or retention cyst in the left antrum. Bilateral septal deviation and right septal spur in the mid septum. Minimal chronic mucosal thickening in the ethmoid air cells. Frontal and sphenoid sinuses are unremarkable. Mastoid air cells are well aerated. IMPRESSION: 1. Cellulitis abutting the right maxilla, right mandible, right sternocleidomastoid mastoid muscle, and right parotid gland. 2. Small abscess, not greater than 1 cm, abutting the right posterior lateral maxilla at the level of the tooth buds and inferior right maxillary sinus. No obvious cortical destruction of the lateral cortex of the right maxillary bone or bony madrigal of the right maxillary antrum. 3. Possible infection in the right maxillary second molar. Possible fracture right maxillary premolars above the tooth buds. 4. Chronic sinusitis right maxillary sinus more than left with minimal chronic disease in the ethmoid air cells. Electronically signed by: Home Odonnell MD 05/04/2018 10:58 AM [facility]
[2018-05-04] MEDS ORDERED: SODIUM CHLORIDE 0.9% 100ML 100 ML IVPB ONE ×2 (16:29→19:52)
[2018-05-04] MEDS: METOPROLOL TARTRATE 50 MG TAB PO SCH (17:27)
[2018-05-04] MEDS ORDERED: glipiZIDE 5 MG TAB ONE (19:51)
[2018-05-04] MEDS ORDERED: CLINDAMYCIN IV 900MG 50 ML IVPB ONE ×2 (20:12→22:47)
[2018-05-04] MEDS: TAMSULOSIN 0.4 MG CAP PO SCH (20:57)
[2018-05-04] MEDS: APIXABAN 2.5 MG TAB PO SCH (20:57)
[2018-05-04] MEDS: BIFIDOBACTERIUM INFANTIS 4 MG CAP PO SCH (20:57)
[2018-05-04] MEDS: CLINDAMYCIN IV 900MG 900 MG in PREMIX BAG 1 BAG IVPB SCH (21:05)
--- NOTE | 2018-05-04 21:30 | PN ---
DATE: 05/04/18 SUPERVISING PHYSICIAN: Mark Nair M.D. SUBJECTIVE: The patient is sitting up in his bed. He is visiting with friends. I explained to him that Dr. Jordan would be by to see him today and would drain his abscess if she thought that it was appropriate and he agreed to that. Otherwise he feels much better. He feels like the swelling has gone down. Denies any chest pain, nausea, vomiting, diarrhea or shortness of breath. OBJECTIVE: VITAL SIGNS: temperature 97.5, heart rate 64, blood pressure 164/82, respiratory rate 18, O2 sat 93% on room air. RESPIRATORY: Essentially clear to auscultation bilaterally. Slightly diminished at the bases. CARDIAC: Regular rate and rhythm. GASTROINTESTINAL: Abdomen is soft, nondistended, non-tender. Bowel sounds are positive. INTEGUMENT: The swelling to his right cheek and jaw line is much improved since yesterday. It continues to be warm but the erythema is very mild. It is much improved since yesterday. NEUROLOGIC: He is awake, alert and oriented times three. LABORATORY: CBC is basically within normal limits but his ESR is 35. Electrolytes are within normal limits. Blood sugars have run between 154 and 207. C reactive protein is 1.1. Total bilirubin is slightly high at 1.2. Preliminary blood cultures show no growth after [address] shows: 1) Cellulitis abutting the right maxilla, right mandible, right sternocleidomastoid muscle and right parotid gland. 2) Small abscess not greater than 1 cm abutting the right posterolateral maxilla at the level of the tooth buds and inferior right maxillary sinus. No obvious cortical destruction at the lateral cortex of the right maxillary bone or bony madrigal of the right maxilla antrum. 3) Possible infection of the right maxillary second molar, possible fracture right maxillary premolars above the tooth buds. 4) Chronic sinusitis, right maxillary sinus more than the left with minimal chronic disease in the ethmoid air cells. All other labs and films have been reviewed via the EMR. ASSESSMENT: 1. Dental abscess to the right upper molar, failed outpatient treatment on 2 oral antibiotics. 2. Near syncopal episodes with no loss of consciousness. 3. Mild leukocytosis secondary to #1 that has improved. 4. Diabetes mellitus type 2. 5. Hypertension that is controlled on medications. 6. Obstructive sleep apnea, although he does not wear his CPAP machine. 7. Benign prostatic hypertrophy with chronic urinary tract infections on Keflex daily. 8. History of bladder cancer that is stable. 9. History of prostate cancer that is stable. 10. History of atrial fibrillation on Eliquis therapy. 11. History of chronic obstructive pulmonary disease without acute exacerbation. 12. Gastroesophageal reflux disease. PLAN: We will continue present supportive care. I have added Align to his medication regimen. I have also changed him from Zosyn to clindamycin. Dr. Pio Jordan, dentist, came by to see the patient today and she felt that the abscess did not need draining today, and the swelling and erythema needed to improve. She would stop by tomorrow to check on the patient and drain the abscess if needed. The plan of stay is probably until Monday or Monday. I will follow Dr. Jordan's recommendations for discharge. I have also ordered routine lab for in the morning. We will continue to monitor closely and follow as needed. [facility][id number] [facility]
[2018-05-05] MEDS: HYDROcodone 7.5MG/APAP 325MG 1 EA TAB PO PRN ×4 (02:38→20:58)
[2018-05-05] MEDS: CLINDAMYCIN IV 900MG 900 MG in PREMIX BAG 1 BAG IVPB SCH ×3 (06:19→21:52)
[2018-05-05] MEDS: LEVOTHYROXINE SODIUM 0.075 MG TAB PO SCH (06:19)
[2018-05-05] MEDS: ONDANSETRON INJ 4 MG/2 ML VIAL IV PRN ×2 (07:27→23:38)
[2018-05-05] MEDS ORDERED: CLINDAMYCIN IV 900MG 50 ML IVPB ONE ×3 (08:09→19:23)
[2018-05-05] MEDS: APIXABAN 2.5 MG TAB PO SCH ×2 (08:38→20:45)
[2018-05-05] MEDS: glipiZIDE 5 MG TAB PO SCH (08:39)
[2018-05-05] MEDS: BIFIDOBACTERIUM INFANTIS 4 MG CAP PO SCH ×2 (08:39→20:45)
[2018-05-05] MEDS: FINASTERIDE 5 MG TAB PO SCH (08:40)
[2018-05-05] MEDS: CEPHALEXIN MONOHYDRATE 500 MG CAP PO SCH (08:40)
[2018-05-05] MEDS: METFORMIN HCL PO SCH ×2 (08:41→16:51)
[2018-05-05] MEDS: SAXAGLIPTIN PO SCH ×2 (08:41→16:51)
[2018-05-05] MEDS: METOPROLOL TARTRATE 50 MG TAB PO SCH ×2 (08:42→16:51)
[2018-05-05] MEDS: LISINOPRIL 10 MG TAB PO SCH (08:42)
[2018-05-05] MEDS: INSULIN LISPRO 100 UNITS/ML PEN SUBCU SCH ×4 (08:43→21:21)
[2018-05-05] MEDS ORDERED: MAGNESIUM SULFATE PREMIX 2GM 2 GM in PREMIX BAG 1 BAG IVPB ONE (20:05)
[2018-05-05] MEDS ORDERED: MAGNESIUM SULFATE PREMIX 2GM 50 ML IVPB ONE (20:42)
[2018-05-05] MEDS: TAMSULOSIN 0.4 MG CAP PO SCH (20:45)
--- NOTE | 2018-05-05 23:46 | PN ---
DATE: 05/05/18 SUPERVISING PHYSICIAN: Mark Nair M.D. SUBJECTIVE: The patient continues to have some discomfort to the right side of his face, although he reports the swelling feels like it may be less than admission and certainly is improving. He has been afebrile. At time of exam, Dr. Jordan, his dentist, was present to do an incision and drainage of the abscess in question. The patient was transitioned to clindamycin and is having no noted complications and seems to be improving clinically. OBJECTIVE: VITAL SIGNS: temperature 97.6, pulse 68, blood pressure 114/63, respirations 95% on room air. I's and O's show a negative balance of 1510 with 1190 in, 2700 out. Weight is 132.4 kg. GENERAL: The patient appears to be comfortable in no acute distress. He is alert. HEENT: There continues to be a swelling noted to the right cheek and jaw with no obvious edema, but is fairly soft to palpation as well as with pain. Orally there is no sign of drainage. Again poor dentition is noted. CHEST: Lung sounds are clear to auscultation. HEART: Regular rate and rhythm. ABDOMEN: Soft, non-tender. Positive bowel sounds. EXTREMITIES: Without any clubbing, cyanosis or edema. NEUROLOGIC: He is alert and oriented times three. INTEGUMENT: As noted in his HEENT, the increased swelling to the right upper jaw area with some improvement from admission. LABORATORY: White count 8,900, hemoglobin 12.6, hematocrit 37.9, platelet count 242,000. Differential shows to be without a left shift. Chemistries show normal electrolytes with potassium 4.3, BUN 10, creatinine 0.74. Blood sugar is between 91 and 189. Liver functions are showing to be within normal limits. Magnesium is low at 1.6. MICROBIOLOGY: Wound culture of drainage of abscess is pending. Blood cultures remain negative at 48 hours. RADIOLOGY: No additional radiographic studies. ASSESSMENT: 1. Dental abscess to the right upper molar having failed outpatient treatment measures on 2 separate oral antibiotics. 2. Near syncopal episodes without any loss of consciousness, uncertain etiology. 3. Mild leukocytosis now at baseline secondary to #1. 4. Mild electrolyte imbalance to include hypomagnesemia. 5. Diabetes mellitus type 2. 6. Hypertension that is controlled on medications. 7. Obstructive sleep apnea. The patient does not want to wear his CPAP mask. 8. Benign prostatic hypertrophy with chronic urinary tract infections on Keflex daily. 9. History of bladder cancer that is stable. 10. History of prostate cancer that is stable. 11. History of atrial fibrillation on chronic anticoagulation Eliquis therapy with Eliquis. 12. History of chronic obstructive pulmonary disease without any evidence of acute exacerbation. 13. Gastroesophageal reflux disease. PLAN: Dr. Jordan is present and is going to do an incision and drainage of the area in question and will also do a culture. He has been transitioned from Zosyn to clindamycin and is doing well clinically. Will continue to monitor closely. He has been offered pain management with oral medications to include [place] as needed. Anticipate probably he will not discharge until Monday given that he just had an incision and drainage to ensure that he continues to improve clinically and does not have any set backs, and also with concerns for excessive bleeding due to the Eliquis. In regards to the hypomagnesemia, will plan to replace with IV therapy. Until he transitions to outpatient management he will need to be continued to be monitored and treated. Once discharged he will need close followup with Dr. Jordan and she will make arrangements for him to see an oral surgeon to complete treatment on the tooth in question. [facility][id number] [facility]
[2018-05-06] MEDS: LEVOTHYROXINE SODIUM 0.075 MG TAB PO SCH (06:13)
[2018-05-06] MEDS: glipiZIDE 5 MG TAB PO SCH (06:13)
[2018-05-06] MEDS: CLINDAMYCIN IV 900MG 900 MG in PREMIX BAG 1 BAG IVPB SCH ×3 (06:13→21:40)
[2018-05-06] MEDS: INSULIN LISPRO 100 UNITS/ML PEN SUBCU SCH ×4 (08:08→22:06)
[2018-05-06] MEDS: LISINOPRIL 10 MG TAB PO SCH (08:09)
[2018-05-06] MEDS: BIFIDOBACTERIUM INFANTIS 4 MG CAP PO SCH ×2 (08:10→20:51)
[2018-05-06] MEDS: CEPHALEXIN MONOHYDRATE 500 MG CAP PO SCH (08:11)
[2018-05-06] MEDS: APIXABAN 2.5 MG TAB PO SCH ×2 (08:11→20:51)
[2018-05-06] MEDS: METFORMIN HCL PO SCH ×2 (08:11→17:19)
[2018-05-06] MEDS: METOPROLOL TARTRATE 50 MG TAB PO SCH ×2 (08:11→17:19)
[2018-05-06] MEDS: FINASTERIDE 5 MG TAB PO SCH (08:11)
[2018-05-06] MEDS: SAXAGLIPTIN PO SCH ×2 (08:11→17:19)
[2018-05-06] MEDS: HYDROcodone 7.5MG/APAP 325MG 1 EA TAB PO PRN (08:18)
[2018-05-06] MEDS ORDERED: MAGNESIUM SULFATE PREMIX 2GM 2 GM in PREMIX BAG 1 BAG IVPB ONE (09:13)
[2018-05-06] MEDS ORDERED: MAGNESIUM SULFATE PREMIX 2GM 50 ML IVPB ONE (09:21)
[2018-05-06] MEDS ORDERED: CLINDAMYCIN IV 900MG 50 ML IVPB ONE ×2 (14:57→19:09)
[2018-05-06] MEDS: IV SET AND CAP CHANGE INJ INJ SCH (15:00)
[2018-05-06] MEDS: TAMSULOSIN 0.4 MG CAP PO SCH (20:52)
--- NOTE | 2018-05-06 21:36 | PN ---
DATE: 05/06/18 SUPERVISING PHYSICIAN: Mark Nair M.D. SUBJECTIVE: The patient reports that the pain in his right jaw has been slowly decreasing as well as the swelling looks like it has gone down since the incision and drainage was done yesterday by Dr. Jordan. He continues to be without a fever. He does continue to have near syncopal episodes which he describes as a flushing dizziness feeling, but his blood pressure is never noted to be low nor is his heart rate significantly changed, either becoming tachycardic or bradycardic and he does have a pacemaker in place. OBJECTIVE: VITAL SIGNS: Temperature 98.2, pulse 64, blood pressure 157/75, respirations 18, satting 94% on room air. Weight 132.5 kg. I's and O's are showing to be a negative balance of 1010 with 1590 in, 2600 out. GENERAL: The patient is resting comfortably in bed in no distress. He is alert. HEENT: Swelling on the right cheek is decreased compared to yesterday. There is no redness. Continues to be tender to palpation and soft. CHEST: Lungs are clear to auscultation. HEART: Regular rate and rhythm. ABDOMEN: Soft, non-tender. Positive bowel sounds. EXTREMITIES: Without any clubbing, cyanosis or edema. NEUROLOGIC: He remains alert and oriented times three. LABORATORY: Sed rate has decreased to 29. Chemistries yesterday were showing to be within normal limits, just with a mildly low magnesium which today is at 1.7. C reactive protein is up slightly to 2.5. Blood sugar has been fairly well controlled between 125 and 167. MICROBIOLOGY: Wound culture of the abscess is pending. Blood cultures remain negative after 3 days. ASSESSMENT: 1. Dental abscess to the right upper molar having failed to respond to outpatient treatment measures on 2 separate antibiotics now improving with parenteral antibiotics and incision and drainage performed by Dr. Jordan. 2. Persistent near syncopal episodes with no etiology noted, but no loss of consciousness. 3. Mild leukocytosis showing to be now at baseline after initiation of therapy. 4. Mild continuous hypomagnesemia but responding to IV replacement. 5. Diabetes mellitus type 2. 6. Hypertension that is showing to be controlled on medications. 7. Obstructive sleep apnea. The patient does not want to wear his CPAP mask. 8. Benign prostatic hypertrophy with chronic urinary tract infections on Keflex daily. 9. History of bladder cancer that is stable. 10. History of prostate cancer that is stable. 11. History of atrial fibrillation on chronic Eliquis therapy with the patient having a controlled ventricular rate. 12. History of chronic obstructive pulmonary disease without any evidence of acute exacerbation. 13. Chronic gastroesophageal reflux disease. PLAN: Will hopefully be able to discharge tomorrow if he continues to improve on clindamycin. If he does remain afebrile, certainly will be able to discharge to followup with Dr. Jordan, and she will make arrangements for an oral surgeon to complete treatment of the abscess and the molar in question. I will touch base tomorrow with Dr. Combs in regards to the continuous syncopal episodes that have no explanation at this point. I have reviewed his medications. He is only on a few medications that could possibly result in some hypotension, but Dr. Combs has been working on those medications. Still monitoring on cardiac telemetry and still have not seen any abnormalities as far as that would explain his near syncopal episodes. Certainly may warrant getting an ultrasound of his Dopplers tomorrow to ensure that is not the etiology, however I am not sure if he has had one done in the recent past. I will double check on that before we order one. Again, hopefully be able to discharge tomorrow on continued antibiotics and to followup with Dr. Combs and Dr. Jordan as described above. Until then will continue to monitor and treat as noted. [facility][id number] [facility]
[2018-05-06] MEDS ORDERED: ACETAMINOPHEN 325 MG TAB PO PRN (21:49)
[2018-05-07] MEDS ORDERED: CLINDAMYCIN IV 900MG 50 ML IVPB ONE (00:27)
[2018-05-07] MEDS: CLINDAMYCIN IV 900MG 900 MG in PREMIX BAG 1 BAG IVPB SCH (06:07)
[2018-05-07] MEDS: LEVOTHYROXINE SODIUM 0.075 MG TAB PO SCH (06:41)
[2018-05-07] MEDS: glipiZIDE 5 MG TAB PO SCH (06:41)
[2018-05-07] MEDS: INSULIN LISPRO 100 UNITS/ML PEN SUBCU SCH ×2 (07:54→11:35)
[2018-05-07] MEDS: METOPROLOL TARTRATE 50 MG TAB PO SCH (08:51)
[2018-05-07] MEDS: CEPHALEXIN MONOHYDRATE 500 MG CAP PO SCH (08:52)
[2018-05-07] MEDS: APIXABAN 2.5 MG TAB PO SCH (08:52)
[2018-05-07] MEDS: BIFIDOBACTERIUM INFANTIS 4 MG CAP PO SCH (08:52)
[2018-05-07] MEDS: LISINOPRIL 10 MG TAB PO SCH (08:52)
[2018-05-07] MEDS: FINASTERIDE 5 MG TAB PO SCH (08:52)
[2018-05-07] MEDS: METFORMIN HCL PO SCH (08:53)
[2018-05-07] MEDS: SAXAGLIPTIN PO SCH (08:53)
[2018-05-07 10:09] VITALS: BP 132/62; TEMP 97.6; O2SAT 94
[2018-05-07] MEDS ORDERED: MAGNESIUM SULFATE PREMIX 2GM 2 GM in PREMIX BAG 1 BAG IVPB ONE (10:20)
[2018-05-07] MEDS ORDERED: MAGNESIUM SULFATE PREMIX 2GM 50 ML IVPB ONE (10:38)
--- NOTE | 2018-05-07 12:51 | US ---
EXAM DESCRIPTION: Carotid Duplex: ULTRASOUND. CLINICAL HISTORY: 82 years Male syncopal episodes COMPARISON: CT maxillofacial bones 05/04/2017. TECHNIQUE: Transcutaneous scanning utilizing low-scale and Doppler modes to evaluate the bilateral carotid systems and vertebral arteries. Percentage of diameter of stenosis or no stenosis recorded will be based upon NASCET criteria. FINDINGS: Peak systolic/end diastolic (CM-Sec) CCA Right 65/0 Left 84/10. ICA Right proximal 61/11, mid 82/15. Left proximal 69/15, Distal 81/18. Vertebral Right 61/12 Left 49/10. ECA (PS Only) Right 151 left 138. ICA/CCA peak systolic ratio: Right 1.3 Left 1.0 ICA/CCA end diastolic ratio: Right n/a Left 1.9 Vertebral arteries: antegrade flow. Comments Comments: Atherosclerotic calcification bilaterally. Area stenosis of the right CCA bulb is 31%. Diameter stenosis is 34%. Area stenosis of the right proximal ICA is 40%. Diameter stenosis is 51%. IMPRESSION: 1. Doppler evaluation of the bilateral carotid systems and vertebral arteries shows no hemodynamically significant stenoses. 2. No significant amount of plaque seen in the carotid arteries bilaterally. Bilateral vertebral arteries showed antegrade-cephalad flow. Electronically signed by: Home Odonnell MD 05/07/2018 12:50 PM MONITORING AND EVALUATION ADVISOR
[2018-05-08] MEDS ORDERED: MAGNESIUM OXIDE 400 MG TAB PO SCH (09:00)
--- NOTE | 2018-05-15 08:36 | DS ---
SUPERVISING PHYSICIAN: Seng Eric MD ADMISSION DIAGNOSIS: 1. Dental abscess to the right upper molar, failed outpatient treatment on two oral antibiotics. 2. Near syncopal episodes with no loss of consciousness, unknown etiology. 3. Mild leukocytosis secondary to #1. 4. Diabetes mellitus, type 2. 5. Hypertension, controlled on medications. 6. Obstructive sleep apnea, although he does not wear his CPAP machine. 7. Benign prostatic hypertrophy with chronic urinary tract infections on Keflex daily. 8. History of bladder cancer, stable. 9. History of prostate cancer, stable. 10. History of atrial fibrillation on Eliquis therapy. 11. History of chronic obstructive pulmonary disease without acute exacerbation. 12. Gastroesophageal reflux disease. DISCHARGE DIAGNOSIS: 1. Dental abscess to the right upper molar having failed to respond to outpatient treatment measures on two separate antibiotics, but showing improvement with parenteral antibiotics and incision and drainage performed by Dr. Jordan. 2. Persistent chronic syncopal episodes with no etiology noted, but no loss of consciousness, with Dr. Combs following the patient. 3. Leukocytosis due to #1, back to baseline after initiation of therapy. 4. Hypomagnesemia, requiring IV replacement. 5. Diabetes mellitus, type 2. 6. Hypertension, controlled on medications. 7. Obstructive sleep apnea. The patient does not want to wear his CPAP mask. 8. Benign prostatic hypertrophy with chronic urinary tract infections on Keflex daily. 9. History of bladder cancer, stable. 10. History of prostate cancer, stable. 11. History of atrial fibrillation on chronic Eliquis therapy with the patient continuing to have a controlled ventricular rate prior to discharge. 12. History of chronic obstructive pulmonary disease without any evidence of acute exacerbation. 13. Chronic gastroesophageal reflux disease, stable. REASON FOR HOSPITALIZATION: This is a 82-year-old male patient who started having some pain in his right upper jaw area on Monday. He got in to see his dentist, Dr. Jordan, today and one of his right upper molars was abscessed to the point that she sent him to see Dr. Combs, his primary care physician. He had been on antibiotics for an upper respiratory infection and the right side of his face was still quite swollen. Dr. Combs called me for an admission to the hospital due to right upper molar tooth abscess failed outpatient antibiotics. It is to be noted that since March 24 the patient has also had some near syncopal episodes that had been worked up over the last month and a half. His medications have been reviewed and he was to see Dr. Rodriguez in [place] today. He does have a pacemaker and they were not sure if it was due to hypotensive episodes or some other neurological problem, but he is continuing to have a workup for that. Dr. Combs asked if I would monitor his heart while he is here in the hospital to see if he had a new episode cardiac-burnett. LABORATORY: White count initially was 11,500. Prior to discharge, it was 8,900. Hemoglobin and hematocrit were fairly stable and at discharge hemoglobin was 12.6, hematocrit 37.9. Differential was without a left shift. Platelet count 242,000. Initial sedrate was 35. Prior to discharge, it had returned to baseline and was at 29. Chemistries on admission showed normal electrolytes as well as at discharge with no significant changes. Potassium 4.3, BUN 10, creatinine 0.74. Magnesium was low at 1.6 and 1.7 and required replacement prior to discharge. C-reactive protein was slightly elevated at 1.1. Blood sugars were between 91 and 207. MICROBIOLOGY: Blood cultures remained negative after 5 days. Final wound culture after I&D by Dr. Jordan showed no growth after 12 hours and final report showed normal sharee. RADIOLOGY: CT of the maxillofacial was completed on admission and per radiologic interpretation there was note of cellulitis in the right maxilla, right mandible and right sternocleidomastoid muscle as well as right parotid gland. There was note of a small abscess not greater than 1 cm abutting the right posterolateral maxilla at the level of tooth buds and inferior right maxillary sinus with no obvious cortical destruction of the lateral cortex of the right maxillary bone or bony madrigal of the right maxillary antrum. There was note of a possible infection in the right maxilla secondary to molar possible fracture right maxillary 3 molars as well as the tooth buds and note of chronic sinusitis of the right maxillary sinus with left minimal chronic disease in the ethmoid air cells. Please see that report for full details. He also had a carotid artery study completed due to his syncopal episode history and per radiologic interpretation, the bilateral carotid system and vertebral arteries showed no hemodynamically significant stenosis and no significant amount of plaque seen in the carotid arteries bilaterally. The bilateral vertebral arteries showed anterior grade cephalic flow. Please see that report for full details. HOSPITAL COURSE: Mr. Ahmadi was admitted on 05/03/18 for cellulitis of the face and abscess. He was initiated on antibiotic coverage initially with Zosyn and finished up Levaquin that was started prior to admission. The patient progressed well and was actually changed to clindamycin during the hospitalization and continued to improve clinically. Dr. Jordan, the patient's dentist, was able to do an I&D on the hospitalization with cultures showing normal sharee. After I&D, the patient showed dramatic improvement and was felt in regard to his infection clinically well enough to continue with outpatient management. He was also followed in regards to his near syncopal episodes, which he had a few during hospitalization, but no actual loss of consciousness. After discussion with Dr. Combs, the patient had been completely worked up as an outpatient and will continue to be worked up as an outpatient. Other than doing a carotid study, Dr. Combs was okay with the patient being discharged to followup with him in the outpatient setting for further clinical workup. PLAN: Mr. Ahmadi was discharged on 05/07/18 with instructions to followup with Dr. Combs and Dr. Jordan. He was scheduled to see Dr. Jordan the Monday following discharge and to have a followup with a general oral surgeon to be arranged by Dr. Jordan. He was instructed to take his new prescriptions as instructed and to resume all his home medications. He was given warnings to return to the hospital should he have any return of symptoms or worsening symptoms or other concerning symptoms. Diet at discharge was regular diet as tolerated. Activity to increase as tolerated with caution when changing positions due to the near syncopal episodes. He was provided prescriptions at discharge that included: 1. Pain control with Tylenol #3, 1 every 4 hours as needed, #30, no refills. 2. Continued antibiotic coverage with clindamycin 600 mg q.8h., #54, no refills. 3. Align 4 mg, [id number], or other [id number]-oad-iibnoys equivalent. 4. Peridex mouthwash twice daily, #1 bottle, no refills. 5. Magnesium oxide 400 mg twice daily, #60, no refills. CONDITION AT DISCHARGE: Stable and improving. DISPOSITION: The patient was discharged to care of family. [facility][id number] [facility]
== END 2018-05-07 13:05 | disposition home or self-care (01) | DRG 159 ==
LOC: MS 11:50
PROVIDERS: ADMIT Family Medicine; ATTEND Nurse Practitioner Family
DX: K04.6 Periapical abscess with sinus (principal); I25.10 Atherosclerotic heart disease of native coronary artery without angina pectoris; J44.9 Chronic obstructive pulmonary disease, unspecified; E78.5 Hyperlipidemia, unspecified; I10 Essential (primary) hypertension; N40.0 Benign prostatic hyperplasia without lower urinary tract symptoms; E11.9 Type 2 diabetes mellitus without complications; E03.9 Hypothyroidism, unspecified; G47.33 Obstructive sleep apnea (adult) (pediatric); K21.9 Gastro-esophageal reflux disease without esophagitis; M79.2 Neuralgia and neuritis, unspecified; I48.91 Unspecified atrial fibrillation; E83.42 Hypomagnesemia; Z85.46 Personal history of malignant neoplasm of prostate; Z85.51 Personal history of malignant neoplasm of bladder; Z95.1 Presence of aortocoronary bypass graft; Z88.2 Allergy status to sulfonamides; Z88.8 Allergy status to other drugs, medicaments and biological substances; Z87.891 Personal history of nicotine dependence; Z87.440 Personal history of urinary (tract) infections; Z79.2 Long term (current) use of antibiotics; Z79.01 Long term (current) use of anticoagulants; Z95.0 Presence of cardiac pacemaker

== ENCOUNTER 2018-08-27 22:57 | Emergency (ER) | payer MEDICARE ==
[2018-08-27] MEDS ORDERED: NITROGLYCERIN 0.4 MG 25 EA TAB SL PRN (23:18)
--- NOTE | 2018-08-27 23:23 | ED.PDOC ---
History of Present Illness - General Chief Complaint: Chest Pain/NC Stated Complaint: chest pain, SOB Time Seen by Provider: 08/27/18 23:04 - History of Present Illness Initial Comments: 83 Y/O MALE, C/O CP, STARTED THIS AM, MID CHEST AND RADIATES TO THE BACK IN BETWEEN THE SHOULDER BLADES, PRESSURE AND OCCASIONALLY SHARP, MODERATE, INTERMITTENT, EXACERBATED APPROX ONE HR AND A HALF PLAY THERAPIST. (+) SOB, SL COUGH. DENIES DIAPHORESIS, FEVER, ABD PAIN, N/V/D, PEDAL EDEMA. Allergies/Adverse Reactions: Allergies Nitrofurantoin [From Macrobid] Allergy (Unknown, Verified 02/11/18 03:11) Sulfamethoxazole w/Trimethoprim [From Bactrim] Allergy (Unknown, Verified 02/11/18 03:11) Diltiazem Adverse Reaction (Unknown, Verified 02/11/18 03:11) bradycardia Solifenacin [From Vesicare] Adverse Reaction (Unknown, Verified 02/11/18 03:11) constipation Home Medications: Ambulatory Orders Finasteride 5 mg PO DAILY 08/25/14 Metoprolol Tartrate 50 mg PO BIDFD 08/25/14 glipiZIDE [Glucotrol] 10 mg PO DAILY 08/25/14 Levothyroxine Sodium [Synthroid] 75 mcg PO ACBK 01/02/15 Tamsulosin [Flomax] 0.4 mg PO BEDTIME 01/02/15 Cephalexin Monohydrate [Keflex] 500 mg PO DAILY 06/01/15 Saxagliptin-Metformin HCl [Kombiglyze Xr 2.5-1000 mg] 1 tab PO BIDFD 12/28/15 Acetaminophen [Tylenol] 500 mg PO DAILY 05/03/18 Apixaban [Eliquis] 5 mg PO BID 05/03/18 Cyanocobalamin [Vitamin B-12] 5,000 mcg PO DAILY 05/03/18 Diltiazem HCl Coated Beads [Cartia Xt] 120 mg PO DAILY 05/03/18 Lisinopril [Prinivil] 5 mg PO DAILY 05/03/18 Multiple Vitamins W/ Minerals [Vitamin D3 Complete] 1 tab PO DAILY 05/03/18 Acetamin W/Cod #3 Tab [Tylenol w/CODEINE #3] 1 ea PO Q4HR PRN #30 tab 05/07/18 Bifidobacterium Infantis [Align] 4 mg PO BID cap 05/07/18 Chlorhexidine Mouth Rinse [Peridex] 473 ml MT BID #1 bttl 05/07/18 Clindamycin HCl [Clindamycin Hydrochloride] 600 mg PO Q8HR #54 cap 05/07/18 Magnesium 400 mg PO BID #60 tab 05/07/18 Review of Systems - Review of Systems Constitutional: Denies: chills, diaphoresis, fever EENTM: States: no symptoms reported Respiratory: States: cough, short of breath. Denies: orthopnea, stridor Cardiology: States: chest pain. Denies: edema, palpitations, syncope Gastrointestinal/Abdominal: Denies: abdominal pain, constipation, diarrhea, nausea, vomiting Genitourinary: States: no symptoms reported Musculoskeletal: States: no symptoms reported Skin: States: no symptoms reported Neurological: States: no symptoms reported Endocrine: States: no symptoms reported Past Medical History (General) - Patient Medical History Hx Seizures: No Hx Stroke: No Hx Dementia: No Hx Asthma: No Hx of COPD: No Hx Cardiac Disorders: Yes - AFib, NC Hx Congestive Heart Failure: No Hx Pacemaker: Yes - heart and bladder Hx Hypertension: Yes Hx Thyroid Disease: No Hx Diabetes: Yes Hx Gastroesophageal Reflux: No Hx Renal Disease: No Hx Cancer: No Hx of HIV: No Hx Hepatitis C: No Hx MRSA: No MRSA Source:: Sputum Surgical History: tonsillectomy, other - CABG - Vaccination History Hx Tetanus, Diphtheria Vaccination: No Hx Influenza Vaccination: Yes Hx Pneumococcal Vaccination: Yes - Social History Hx Tobacco Use: Yes Hx Chewing Tobacco Use: No Hx Alcohol Use: No Hx Substance Use: No Hx Substance Use Treatment: No Hx Depression: No Hx Physical Abuse: No Hx Emotional Abuse: No Hx Suspected Abuse: No - Female History Patient : No Family Medical History - Family History Father Family History: Unknown Living Status: Age at (years of age): 66 Cause of : infectious process Hx Family Asthma: No Hx Family Congestive Heart Failure: No Hx Family Hypertension: Yes Hx Family Stroke: No Hx Cardiac Disease: Yes Hx Family Diabetes: Yes Hx Family Cancer: Yes Mother Family History: Unknown Living Status: Age at (years of age): 79 Cause of : Alzheimer's Hx Family Congestive Heart Failure: No Hx Family Hypertension: No Hx Family Stroke: Yes Hx Cardiac Disease: Yes Hx Family Diabetes: No Hx Family Cancer: No Hx Family;Other: Family Hx of Alpha1 antitrypsin deficiency Physical Exam - Physical Exam General Appearance: Alert, Anxious Eye Exam: bilateral normal - BLADE, EOMI Ears, Nose, Throat: normal ENT inspection, normal pharynx Neck: non-tender, full range of motion, supple Respiratory: lungs clear, normal breath sounds, no respiratory distress, no accessory muscle use, other - SL TENDERNESS IN THE MID CHEST Cardiovascular/Chest: normal peripheral pulses, regular rate, rhythm, no edema, no gallop, no JVD Gastrointestinal/Abdominal: normal bowel sounds, non tender, soft, no organomegaly, no pulsatile mass Back Exam: normal inspection, no CVA tenderness Extremity: normal range of motion, non-tender, normal inspection, no pedal edema Neurologic: front desk coordinator II-XII nml as tested, no motor/sensory deficits, alert, normal mood/affect, oriented x 3 Skin Exam: normal color, warm/dry Lymphatic: no adenopathy Progress - Progress Progress: 08/28/18 02:17 08/27/18 23:12 Telemetry .ONCE EKG Stat Pulse Ox Stat Pulse Oximetry Assessment DAILY 08/27/18 23:18 Nitroglycerin 0.4 mg Tab [Nitrostat] 1 ea SL Q5MIN PRN 08/27/18 23:22 B-TYPE NATRIURETIC PEPTIDE/BNP Stat CARDIAC PANEL,ER Stat HEPATIC FUNCTION PANEL Stat 08/28/18 00:57 Sodium Chloride 0.9% 1000ML [Ns 1000 ml] 1,000 ml IVS .KVO 08/28/18 01:00 Nitroglycerin/D5w IV 50,000 mcg Premix Bottle 1 bottle IVS PRN Laboratory Results - last 24 hr 08/27/18 08/27/18 23:22 23:22 WBC 11.8 H RBC 4.39 L Hgb 13.2 L Hct 40.1 L MCV 91.5 MCH 30.1 MCHC 33.0 RDW 14.3 Plt Count 211 MPV 9.3 Absolute Neuts (auto) 7.20 H Absolute Lymphs (auto) 3.20 Absolute Monos (auto) 1.10 H Absolute Eos (auto) 0.30 Absolute Basos (auto) 0.00 Neutrophils % 61.0 Lymphocytes % 26.9 Monocytes % 9.6 H Eosinophils % 2.2 Basophils % 0.3 PT 10.5 INR 1.05 PTT (SP) 27.6 D-Dimer, Quantitative 0.50 H Sodium 135 Potassium 4.3 Chloride 106 Carbon Dioxide 22 Anion Gap 11.3 L BUN 13 Creatinine 1.06 BUN/Creatinine Ratio 12.3 Random Glucose 154 H Serum Osmolality 273.3 L Calcium 9.3 Magnesium 1.6 L Total Bilirubin 0.6 Direct Bilirubin 0.1 Indirect Bilirubin 0.5 AST 18 ALT 17 Alkaline Phosphatase 63 Creatine Kinase 50 CK-MB (CK-2) 1.6 Troponin I < 0.02 Serum Total Protein 6.8 Albumin 3.5 SOME IMPROVEMENT AFTER NTG SL. D DIMER ELEVATED, PT REFERS THAT HE MAY HAVE SKIPPED SOME DOSES OF ELIQUIS, BUT NOT SURE. CTA OF CHEST ORDERED AND PT STARTED ON TRIDIL DRIP. CTA WAS NEG FOR PE, PAIN BETTER ON NITROGLYCERIN DRIP. [facility] TRANSF[facility] TO [facility] D/W DR CULLEN, HOSPITALIST AT [facility], WILL ACCEPT. 08/28/18 02:22 CRITICAL CARE: CRITICAL EVENT: CHEST PAIN CRITICAL FINDINGS: ELEVATED D DIMER, PRECORDIAL CHEST PAIN-BETTER WITH NITROGLYCERIN CRITICAL ACTIONS: STARTED ON NITROGLYCERIN DRIP, TRANSFER TO HIGHER LEVEL OF CARE CRITICAL TIME: 45 MINUTES - EKG/XRAY/CT Comments: NSR 67X', AQRS: 57, QTc 405, NON SPECIFIC ST T CHANGES Xray Comments: CXR: NAF CT Interpretation Call Back: Yes - NO PE Departure - Departure Clinical Impression: Unstable angina pectoris due to coronary arteriosclerosis, Essential hypertension, Intermittent atrial fibrillation Diabetes mellitus Qualifiers: Diabetes mellitus type: type 2 Diabetes mellitus intermediate insulin use: unspecified termite helper insulin use status Diabetes mellitus complication status: without complication Qualified Code(s): E11.9 - Type 2 diabetes mellitus without complications Disposition: Transfer to Hospital Condition: Fair Departure Forms: ED Discharge - Pt. Copy, Patient Portal Self Enrollment Instructions: DI for Chest Pain Referrals: Mejia oCmbs III, MD [Primary Care Provider] - 1-2 Weeks Home Medications: Ambulatory Orders Finasteride 5 mg PO DAILY 08/25/14 Metoprolol Tartrate 50 mg PO BIDFD 08/25/14 glipiZIDE [Glucotrol] 10 mg PO DAILY 08/25/14 Levothyroxine Sodium [Synthroid] 75 mcg PO ACBK 01/02/15 Tamsulosin [Flomax] 0.4 mg PO BEDTIME 01/02/15 Cephalexin Monohydrate [Keflex] 500 mg PO DAILY 06/01/15 Saxagliptin-Metformin HCl [Kombiglyze Xr 2.5-1000 mg] 1 tab PO BIDFD 12/28/15 Acetaminophen [Tylenol] 500 mg PO DAILY 05/03/18 Apixaban [Eliquis] 5 mg PO BID 05/03/18 Cyanocobalamin [Vitamin B-12] 5,000 mcg PO DAILY 05/03/18 Diltiazem HCl Coated Beads [Cartia Xt] 120 mg PO DAILY 05/03/18 Lisinopril [Prinivil] 5 mg PO DAILY 05/03/18 Multiple Vitamins W/ Minerals [Vitamin D3 Complete] 1 tab PO DAILY 05/03/18 Acetamin W/Cod #3 Tab [Tylenol w/CODEINE #3] 1 ea PO Q4HR PRN #30 tab 05/07/18 Bifidobacterium Infantis [Align] 4 mg PO BID cap 05/07/18 Chlorhexidine Mouth Rinse [Peridex] 473 ml MT BID #1 bttl 05/07/18 Clindamycin HCl [Clindamycin Hydrochloride] 600 mg PO Q8HR #54 cap 05/07/18 Magnesium 400 mg PO BID #60 tab 05/07/18
--- NOTE | 2018-08-27 23:41 | RAD ---
CLINICAL HISTORY: chest pain COMPARISON: December 11, 2017. TECHNIQUE: XR CHEST 1 VIEW 08/27/2018 11:12 PM CDT FINDINGS: The heart is mildly enlarged. Sternotomy was performed. Left pacemaker is unchanged. Lungs are clear without consolidation, atelectasis, mass or edema. There is no pleural effusion. There is no pneumothorax. There are no acute osseous findings. IMPRESSION: Clear lungs. Electronically signed by: Jimmy Lopez MD 08/27/2018 11:39 PM CDT
[2018-08-28] MEDS ORDERED: NITROGLYCERIN/D5W IV 250 ML IVS ONE (00:52)
[2018-08-28] MEDS ORDERED: SODIUM CHLORIDE 0.9% 1000ML 1,000 ML ONE (00:52)
[2018-08-28] MEDS ORDERED: SODIUM CHLORIDE 0.9% 1000ML 1,000 ML IVS PRN (00:57)
[2018-08-28] MEDS ORDERED: NITROGLYCERIN/D5W IV 50,000 MCG in PREMIX BOTTLE 1 BOTTLE IVS SCH (01:00)
--- NOTE | 2018-08-28 01:34 | CT ---
EXAM: CT chest angiogram with contrast. INDICATION: Chest pain. TECHNIQUE: Contiguous axial CT images of the chest. Intravenous contrast: Present. Protocol: Pulmonary embolus (PE) protocol angiogram. Reformats: MIPs and MPRs created and utilized. DLP 634 mGy-cm. This exam was performed according to our departmental dose-optimization program, which includes automated exposure control, adjustment of the mA and/or kV according to patient size and/or use of iterative reconstruction technique. Note: LV=left ventricle. RV=right ventricle. COMPARISON: 02/27/2013. FINDINGS: Upper abdomen: Partially imaged. Thoracic aorta: Mild atherosclerotic calcifications Heart: No right atrial thrombus. Atherosclerotic calcifications of the coronary arteries. There is a left chest wall pacemaker in place with leads terminating within the right atrium and right ventricle. RV/LV ratio: Within normal limits. Pulmonary arteries: Technical: Adequate opacification to the level of the segmental vessels. Pulmonary embolus: No low-density filling defect to suggest acute PE. Overall embolic burden: None. Mediastinum: No pathologic sized middle mediastinal lymphadenopathy. Tracheobronchial tree: Unremarkable. Lungs: Lobar consolidation: Negative. Pleural effusion: Negative. Pneumothorax: Negative. Other: Negative. Bones: Unremarkable. IMPRESSION: 1. No CT evidence of acute PE. Electronically signed by: Alon Nieves MD 08/28/2018 1:33 AM CDT Workstation: [id number]
[2018-08-28 03:03] VITALS: BP 126/71; O2SAT 95
[2018-08-28 03:04] VITALS: TEMP 97.6
== END 2018-08-28 03:20 | disposition short-term general hospital (02) ==
LOC: ER 22:57
DX: I25.110 Atherosclerotic heart disease of native coronary artery with unstable angina pectoris (principal); I10 Essential (primary) hypertension; I48.91 Unspecified atrial fibrillation; E11.9 Type 2 diabetes mellitus without complications; R06.02 Shortness of breath; I25.2 Old myocardial infarction; Z95.0 Presence of cardiac pacemaker; Z95.1 Presence of aortocoronary bypass graft; Z87.891 Personal history of nicotine dependence; Z79.01 Long term (current) use of anticoagulants; Z79.899 Other long term (current) drug therapy; Z79.4 Long term (current) use of insulin
CPT/HCPCS: 36415; 71045; 71275; 80048; 80076; 82550; 82553; 83880; 84484; 85025; 85379; 85610; 85730; 93005; J7030

== ENCOUNTER → 2019-01-18 | Outpatient (CLI) | payer MEDICARE | LOC: GMAL 12:28 | PROVIDERS: ATTEND Family Medicine | DX: D51.3 Other dietary vitamin B12 deficiency anemia (principal); E03.9 Hypothyroidism, unspecified; E55.9 Vitamin D deficiency, unspecified; I10 Essential (primary) hypertension; E11.9 Type 2 diabetes mellitus without complications; E78.49 Other hyperlipidemia ==

== ENCOUNTER → 2019-03-25 | Outpatient (CLI) | payer MEDICARE ==
--- NOTE | 2019-03-25 11:14 | RAD ---
3 radiographs of the left fourth finger. 3 radiographs left hand Indication: PAIN IN LEFT FINGERS Comparison: None. Impression: No acute fracture of the left fourth digit or left hand identified. Mild to moderate joint space narrowing throughout the PIP and DIP joints of the hand as well as the first through third MCP joints. 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 No osseous erosions identified. Soft tissues are intact without radiopaque foreign body. Electronically signed by: Kel Kathleen MD 03/25/2019 11:13 AM [facility]
--- NOTE | 2019-03-25 11:14 | RAD ---
3 radiographs of the left fourth finger. 3 radiographs left hand Indication: PAIN IN LEFT FINGERS Comparison: None. Impression: No acute fracture of the left fourth digit or left hand identified. Mild to moderate joint space narrowing throughout the PIP and DIP joints of the hand as well as the first through third MCP joints. 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 No osseous erosions identified. Soft tissues are intact without radiopaque foreign body. Electronically signed by: Kel Kathleen MD 03/25/2019 11:13 AM [facility]
== END ==
LOC: RAD 09:48
PROVIDERS: ATTEND Orthopaedic Surgery
DX: M19.042 Primary osteoarthritis, left hand (principal)

== ENCOUNTER → 2019-04-10 | Outpatient (CLI) | payer MEDICARE ==
--- NOTE | 2019-04-10 23:11 | CT ---
EXAM DESCRIPTION: Abdomen/Pelvis w/wo Contrast CLINICAL HISTORY: 83 years Male, Generalized abdominal pain COMPARISON: CT abdomen 11/26/2009 TECHNIQUE: CT of the abdomen and pelvis acquired without and with IV contrast material. Coronal and sagittal reformations provided. This exam was performed according to our departmental dose-optimization program, which includes automated exposure control, adjustment of the mA and/or kV according to patient size and/or use of iterative reconstruction technique. FINDINGS: Lung bases: Mild dependent atelectasis bilaterally. 3 mm pleural-based round solid pulmonary nodule in the posterior left lower lobe, unchanged from 11/26/2009 and favored be benign. Solid Organs: Unremarkable liver, gallbladder, pancreas, and adrenal glands. Punctate calcification within the spleen. 13 mm cortical left renal cyst. 2.8 cm exophytic left renal cyst, compared to 1.5 cm previously. No renal or ureteral stone. No hydronephroureter. GI tract: Decompressed stomach. No small bowel obstruction. Scattered diverticula without pericolonic inflammation. Mild colonic stool. Normal appendix. Vascular: Moderate atherosclerosis. 3.4 x 3.1 cm aneurysmal dilatation of the infrarenal abdominal aorta compared to 3.0 x 3.0 cm previously. Musculoskeletal and soft tissues: No acute fracture or aggressive appearing osseous lesion. Moderate right and large left fat-containing inguinal hernias. Stimulator device is present within the subcutaneous tissue of the left lower back with its single lead wire entering into the right sacrum. Urinary bladder: Normal. Prostate: Enlarged up to 5.4 cm in maximal transverse dimension. Other: None. IMPRESSION: 1. No acute abnormality of the abdomen or pelvis. 2. 3.4 cm abdominal aortic aneurysm. Recommend follow-up every 3 years. Reference: J Am Zulma Radiol 2013;10:789-794. 3. Diverticulosis. 4. Moderate right and large left fat-containing inguinal hernias. 5. Enlarged prostate. 6. 3 mm pleural based round solid pulmonary nodule in the left lower lobe, unchanged from 11/26/2009 and favored to be benign. No further imaging follow-up recommended. Electronically signed by: Leland Ariza MD 04/10/2019 11:10 PM [facility]
== END ==
LOC: CT 10:00
PROVIDERS: ATTEND Family Medicine
DX: I71.4 Abdominal aortic aneurysm, without rupture (principal); R91.1 Solitary pulmonary nodule; K57.30 Diverticulosis of large intestine without perforation or abscess without bleeding; K40.20 Bilateral inguinal hernia, without obstruction or gangrene, not specified as recurrent; N40.0 Benign prostatic hyperplasia without lower urinary tract symptoms

== ENCOUNTER → 2019-04-29 | Outpatient (CLI) | payer MEDICARE | LOC: LAB.O 15:32 | PROVIDERS: ATTEND Orthopaedic Surgery | DX: Z01.818 Encounter for other preprocedural examination (principal) ==

== ENCOUNTER 2019-05-14 05:52 | Day surgery (SDC) | payer MEDICARE ==
[2019-05-14] MEDS ORDERED: LACTATED RINGERS 1,000 ML ONE (06:56)
[2019-05-14] MEDS ORDERED: ceFAZolin SODIUM 1 GM VIAL ONE (06:56)
[2019-05-14] MEDS ORDERED: SODIUM CHL 0.9% 100ML MINI-BAG 100 ML IVPB ONE (06:56)
[2019-05-14] MEDS ORDERED: BUPIVACAINE 0.25% INJ 30 ML VIAL INJ ONE (07:14)
[2019-05-14] MEDS ORDERED: LIDOCAINE 1% 10 ML VIAL INJ ONE ×2 (07:15→10:00)
[2019-05-14] MEDS ORDERED: fentaNYL CITRATE INJ 50 MCG/ML AMP ONE (08:45)
[2019-05-14] MEDS: VANCOMYCIN HCL INJ 1,000 MG VIAL IVPB ONE ×2 (09:11→09:17)
[2019-05-14] MEDS: ceFAZolin SODIUM 1 GM VIAL ONE ×2 (09:11→09:17)
[2019-05-14] MEDS ORDERED: PROPOFOL 200 MG/20 ML VIAL IV ONE (10:00)
[2019-05-14 10:23] VITALS: BP 165/88; TEMP 96.7; O2SAT 97
--- NOTE | 2019-05-17 08:44 | OP ---
DATE OF PROCEDURE: 05/14/19 PREOPERATIVE DIAGNOSIS: 1. Left fourth trigger finger. POSTOPERATIVE DIAGNOSIS: 1. Left fourth trigger finger. PROCEDURE: 1. Trigger finger release. SURGEON: Darnell Mcdonald MD. ASSOCIATE PROFESSOR OF ENGINEERING: Home Mchugh CST, SA-C. ANESTHESIA: Local with sedation. COMPLICATIONS: None. FINDINGS: Triggering at the A1 diogo of the fourth digit. INDICATION: Mr. Ahmadi has a history of pain and clicking in addition to locking at the fourth digit. Because of his refractory symptoms, he has requested operative intervention. After discussing the risks, benefits and alternatives to operative therapy, the patient has given informed consent for trigger finger release. PROCEDURE: The patient was brought to the Operating Room and placed in the supine position. Sedation was administered and local anesthetic was injected into the operative area. Following injection, the arm was sterilely prepped and draped. A transverse incision was made directly overlying the A1 diogo of the triggering digit and blunt dissection was carried down to the diogo while protecting the digital nerves. After identification of the diogo, the diogo was transected and a [place] elevator was passed both proximally and distally to ensure complete release. The finger was flexed and extended and there was no evidence of locking or clicking. The wound was thoroughly irrigated and closed with Nylon suture. A sterile dressing was placed and the patient was taken to the Day Surgery Unit. POSTOPERATIVE PLAN: The patient will be doing range of motion of the digits and will followup with us in approximately two days. #[id number] MTDD
== END 2019-05-14 10:19 | disposition home or self-care (01) ==
LOC: AMB 05:52
PROVIDERS: ATTEND Orthopaedic Surgery
DX: M65.342 Trigger finger, left ring finger (principal); M19.90 Unspecified osteoarthritis, unspecified site; I25.10 Atherosclerotic heart disease of native coronary artery without angina pectoris; E11.9 Type 2 diabetes mellitus without complications; I11.9 Hypertensive heart disease without heart failure; Z95.0 Presence of cardiac pacemaker; Z95.1 Presence of aortocoronary bypass graft; Z79.01 Long term (current) use of anticoagulants; Z79.899 Other long term (current) drug therapy
CPT/HCPCS: 01810; 26055; 36416; 80307; 82948; J0690; J3010; J3370; J3490; J7050; J7120

== ENCOUNTER → 2019-11-29 | Outpatient (CLI) | payer MEDICARE | LOC: GMAE 12:59 | PROVIDERS: ATTEND Family Medicine | DX: N39.0 Urinary tract infection, site not specified (principal) ==

== ENCOUNTER 2019-12-02 11:25 | Inpatient (IN) | payer MEDICARE ==
--- NOTE | 2019-12-02 11:49 | HP ---
SUPERVISING PHYSICIAN: Mark Nair MD CHIEF COMPLAINT: Urinary tract infection. HISTORY OF PRESENT ILLNESS: This is an 84-year-old male patient who was directly admitted from Dr. Combs' office. The patient was diagnosed with a urinary tract infection last week. He had a urinalysis and a culture done on 11/29/19. He was placed on Levaquin at the time. Today, he went to the office and was not doing any better. The patient states he had a fever of about 101 pretty much since last Monday. He has had urinary tract infections in the past and prostatitis as well. He wears Depends and had quite a bit of incontinence and this morning noted he did not hardly have any. He went to the office today and his cul-de-sac showed E. coli with multidrug resistance. For that reason, he was referred for admission. At time of examination, the patient is alert and oriented. He looks rundown and does not feel very good, but he is not in any significant distress. PAST MEDICAL HISTORY: 1. Coronary artery disease. 2. Chronic obstructive pulmonary disease. 3. Hyperlipidemia. 4. Hypertension. 5. Benign prostatic hypertrophy. 6. Type 2 diabetes mellitus. 7. Hypothyroidism. 8. Degenerative disc disease with radiculopathy. 9. Obstructive sleep apnea, but does not use CPAP. 10. Prostate cancer with radioactive seed implant. 11. History of gastroesophageal reflux disease. 12. Post herpetic neuralgia. 13. Bladder cancer. PAST SURGICAL HISTORY: 1. Appendectomy. 2. Cholecystectomy. 3. Tonsillectomy. 4. Adenoidectomy. 5. Transurethral resection of the prostate. 6. Bladder surgery. 7. Coronary artery bypass grafting. MEDICATIONS: Please see med rec list once verified in the computer. ALLERGIES: MACROBID, SULFA DRUGS, DILTIAZEM, INVOKANA, VESICARE. FAMILY HISTORY: Heart disease, prostatitis, pneumonia, hypertension, hyperlipidemia, Alzheimer's. SOCIAL HISTORY: He is retired. 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 He is and had two children. He has distant history of smoking, but quit 35 years ago. No illegal drugs, no alcohol. REVIEW OF SYSTEMS: CONSTITUTIONAL: Positive for fever and chills. No recent weight loss or weight gain. HEENT: No headaches, vision changes, ear pain, nasal congestion or throat pain. RESPIRATORY: No cough, hemoptysis or pleuritic chest pain. CARDIOVASCULAR: No chest pain, palpitations or peripheral edema. GASTROINTESTINAL: No nausea, vomiting, diarrhea, constipation or abdominal pain. GENITOURINARY: No dysuria, but he has frequency and now inability to urinate. ENDOCRINE: No polydipsia, polyuria or polyphagia. No heat or cold intolerance. NEUROLOGIC: No syncope, paresthesias or seizures. PHYSICAL EXAMINATION: GENERAL: Mr. Ahmadi is an 84-year-old male patient who is ill in appearance, but does not appear to be in active distress. NEUROLOGIC: The patient is alert and oriented. LUNGS: Clear to auscultation bilaterally. CARDIOVASCULAR: Regular rate and rhythm. Normal S1, S2. ABDOMEN: Obese, soft. Positive bowel sounds. No tenderness to palpation. GENITOURINARY: Deferred. EXTREMITIES: Lower extremities with trac edema. Pulses 2+. Capillary refill is less than 2 seconds. ASSESSMENT: 1. Multidrug resistant Escherichia coli urinary tract infection/prostatitis with failed outpatient therapy. 2. Hypertension. 3. Coronary artery disease. 4. Diabetes mellitus, type 2. 5. Chronic obstructive pulmonary disease with no exacerbation. PLAN: At this point, we already know what bacteria it is and what antibiotics will be useful. I am going to place him on cefepime 2 grams q.12h. I am going to go ahead and get blood cultures to ensure that he does not have any bacteremia. I am going to get a lactate as well as CBC and chemistry as well. I will put him on Protonix for GI ulcer prophylaxis and I will put him on Lovenox for DVT prophylaxis. I will resume his home medications once they are reviewed in the computer. [facility][id number] [facility]
[2019-12-02] MEDS ORDERED: SODIUM CHLORIDE 0.9% (FLUSH) 10 ML SYG IV PRN (11:52)
[2019-12-02] MEDS ORDERED: IV SET AND CAP CHANGE INJ INJ SCH (12:00)
[2019-12-02] MEDS: PANTOPRAZOLE SODIUM IV 40 MG VIAL IV SCH (13:15)
[2019-12-02] MEDS: LACTATED RINGERS 1,000 ML IVS PRN ×2 (13:15→23:17)
[2019-12-02] MEDS: CEFEPIME 2 GM in SODIUM CHL 0.9% 100ML MINI-BAG 100 ML IVPB SCH ×2 (13:15→23:17)
[2019-12-02] MEDS: ACETAMINOPHEN 325 MG TAB PO PRN (16:30)
[2019-12-02] MEDS ORDERED: DEXTROSE 50% 25 GM/50 ML SYG IV PRN ×2 (17:59→18:00)
[2019-12-02] MEDS ORDERED: GLUCAGON INJ 1 MG VIAL SUBCU PRN ×2 (17:59→18:00)
[2019-12-02] MEDS ORDERED: MAGNESIUM OXIDE 400 MG TAB ONE (19:08)
[2019-12-02] MEDS: APIXABAN 5 MG TAB PO SCH (20:00)
[2019-12-02] MEDS: INSULIN LISPRO 100 UNITS/ML PEN SUBCU SCH (20:58)
[2019-12-02] MEDS ORDERED: MAGNESIUM OXIDE 400 MG PO SCH (21:00)
[2019-12-02] MEDS ORDERED: CARTIA XT 240 MG PO SCH (21:00)
[2019-12-03] MEDS: ACETAMINOPHEN 325 MG TAB PO PRN ×2 (00:10→20:08)
[2019-12-03] MEDS: LEVOTHYROXINE SODIUM 0.075 MG TAB PO SCH (06:16)
[2019-12-03] MEDS ORDERED: MAGNESIUM OXIDE 400 MG TAB ONE (07:30)
[2019-12-03] MEDS ORDERED: METOPROLOL TARTRATE 50 MG TAB ONE (07:30)
[2019-12-03] MEDS ORDERED: POLYETHYLENE GLYCOL 3350 17 GM PCKT ONE (07:31)
[2019-12-03] MEDS: INSULIN LISPRO 100 UNITS/ML PEN SUBCU SCH ×4 (07:32→21:04)
[2019-12-03] MEDS: APIXABAN 5 MG TAB PO SCH ×2 (08:56→20:05)
[2019-12-03] MEDS: MAGNESIUM OXIDE 400 MG TAB PO SCH ×2 (08:56→20:05)
[2019-12-03] MEDS: METOPROLOL TARTRATE 50 MG TAB PO SCH ×2 (08:56→16:36)
[2019-12-03] MEDS: LISINOPRIL 10 MG TAB PO SCH (08:56)
[2019-12-03] MEDS: glipiZIDE 5 MG TAB PO SCH (08:56)
[2019-12-03] MEDS: POLYETHYLENE GLYCOL 3350 17 GM PCKT PO SCH ×2 (08:57→09:08)
[2019-12-03] MEDS: METFORMIN HCL PO SCH ×2 (08:59→16:36)
[2019-12-03] MEDS: SAXAGLIPTIN PO SCH ×2 (08:59→16:36)
[2019-12-03] MEDS: LACTATED RINGERS 1,000 ML IVS PRN ×2 (10:24→21:15)
[2019-12-03] MEDS: CEFEPIME 2 GM in SODIUM CHL 0.9% 100ML MINI-BAG 100 ML IVPB SCH ×2 (11:27→23:25)
[2019-12-03] MEDS: PANTOPRAZOLE SODIUM IV 40 MG VIAL IV SCH (11:27)
--- NOTE | 2019-12-03 11:27 | PN ---
SUPERVISING PHYSICIAN: Mark Nair MD DATE: 12/03/19 SUBJECTIVE: The patient states he feels better today than he did yesterday, but still not back to his normal state. He has been going to the restroom continuously. He does have a history of incontinence, but yesterday when he came, he really could not go to the bathroom. At least today he is. OBJECTIVE: VITAL SIGNS: Blood pressure 150/74, heart rate 89, respiratory rate 18, temperature 97.4, oxygen saturation 94%. GENERAL: Mr. Ahmadi is an 84-year-old male patient who is in no active distress currently. NEUROLOGIC: Alert and oriented. LUNGS: Clear to auscultation bilaterally. CARDIOVASCULAR: Regular rate and rhythm. Normal S1, S2. ABDOMEN: Obese, soft. Positive bowel sounds. GENITOURINARY: Deferred. EXTREMITIES: Lower extremities with no edema. He does have a rash on his feet and lower ankles. This was there on admission and has not really gotten any worse. There is no warmth to the touch. He has good peripheral pulses. ASSESSMENT: 1. Multidrug resistant Escherichia coli urinary tract infection/prostatitis with failed outpatient therapy. 2. Hypertension. 3. Coronary artery disease. 4. Diabetes mellitus, type 2. 5. Chronic obstructive pulmonary disease with no exacerbation. PLAN: We will continue cefepime q.12h. I did discuss with Dr. Lindsey regarding treatment. Her recommendation is to utilize cefpodoxime 200 mg b.i.d. for a total of 6 weeks for the prostatitis. For now, we will keep on the IV antibiotics and likely discharge or Monday on the p.o. antibiotics. [facility][id number] [facility]
[2019-12-03] MEDS ORDERED: PRAVASTATIN SODIUM 20 MG TAB ONE (19:43)
[2019-12-03] MEDS: PRAVASTATIN SODIUM 20 MG TAB PO SCH (20:04)
[2019-12-03] MEDS: MELATONIN 3 MG TAB PO PRN (20:08)
[2019-12-04] MEDS: glipiZIDE 5 MG TAB PO SCH (06:00)
[2019-12-04] MEDS: LEVOTHYROXINE SODIUM 0.075 MG TAB PO SCH (06:00)
[2019-12-04] MEDS: INSULIN LISPRO 100 UNITS/ML PEN SUBCU SCH ×4 (08:38→20:52)
[2019-12-04] MEDS ORDERED: METOPROLOL TARTRATE 50 MG TAB ONE (08:43)
[2019-12-04] MEDS: SAXAGLIPTIN PO SCH ×2 (08:44→17:29)
[2019-12-04] MEDS: METFORMIN HCL PO SCH ×2 (08:44→17:29)
[2019-12-04] MEDS: METOPROLOL TARTRATE 50 MG TAB PO SCH ×2 (08:44→17:29)
[2019-12-04] MEDS: APIXABAN 5 MG TAB PO SCH ×2 (10:05→20:20)
[2019-12-04] MEDS: POLYETHYLENE GLYCOL 3350 17 GM PCKT PO SCH (10:05)
[2019-12-04] MEDS: LISINOPRIL 10 MG TAB PO SCH (10:05)
[2019-12-04] MEDS: MAGNESIUM OXIDE 400 MG TAB PO SCH ×2 (10:05→20:20)
--- NOTE | 2019-12-04 10:19 | PN ---
SUPERVISING PHYSICIAN: Mark Nair MD DATE: 12/04/19 SUBJECTIVE: The patient feels better this morning than he did yesterday. No complaints of pain or weakness at this point. OBJECTIVE: VITAL SIGNS: Blood pressure 113/64, heart rate 59, respiratory rate 18, temperature 97.3, oxygen saturation 96%. GENERAL: Mr. Ahmadi is an 84-year-old male patient who is in no active distress currently. NEUROLOGIC: Alert. LUNGS: A little bit diminished in the bases, but otherwise clear to auscultation bilaterally. No wheezing, no rhonchi. CARDIOVASCULAR: Regular rate and rhythm. Normal S1, S2. ABDOMEN: Obese, soft. Positive bowel sounds. GENITOURINARY: Deferred. EXTREMITIES: Lower extremities with no edema. Pulses 2+. Capillary refills less than 2 seconds. LABORATORY: White count 8.9, hemoglobin 13.0, hematocrit 38.1, platelet count 250. Sodium 135, potassium 4.5, chloride 101, CO2 25, BUN 13, creatinine 0.86, glucose 194, calcium 8.8. ASSESSMENT: 1. Multidrug resistant Escherichia coli urinary tract infection/prostatitis with failed outpatient therapy. 2. Hypertension. 3. Coronary artery disease. 4. Diabetes mellitus, type 2. 5. Chronic obstructive pulmonary disease with no exacerbation. PLAN: We will continue to utilize the cefepime q.12h. As stated yesterday, I did discuss with Dr. Lindsey and her recommendation was to use cefpodoxime 200 mg b.i.d. for a total of 6 weeks for the prostatitis. I discussed discharge planning with the patient. I discussed with him his activities of daily living and how he gets around. He lives at an apartment complex for the elderly. He does not have assisted living or home health. After discussion with him and social work, we are going to get a referral to primary home care to help him with certain aspects of his home life. I anticipate that he will go home likely or Monday on p.o. antibiotics. #[id number] MTDD
[2019-12-04] MEDS: ACETAMINOPHEN 325 MG TAB PO PRN ×2 (13:42→23:10)
[2019-12-04] MEDS: CEFEPIME 2 GM in SODIUM CHL 0.9% 100ML MINI-BAG 100 ML IVPB SCH ×2 (13:42→23:16)
[2019-12-04] MEDS: PANTOPRAZOLE SODIUM IV 40 MG VIAL IV SCH (13:43)
[2019-12-04] MEDS: PRAVASTATIN SODIUM 20 MG TAB PO SCH (20:25)
[2019-12-04] MEDS: MELATONIN 3 MG TAB PO PRN (23:16)
[2019-12-05] MEDS: LEVOTHYROXINE SODIUM 0.075 MG TAB PO SCH (06:06)
[2019-12-05] MEDS: glipiZIDE 5 MG TAB PO SCH (06:06)
[2019-12-05] MEDS: INSULIN LISPRO 100 UNITS/ML PEN SUBCU SCH (08:11)
[2019-12-05] MEDS: APIXABAN 5 MG TAB PO SCH (08:25)
[2019-12-05] MEDS: METOPROLOL TARTRATE 50 MG TAB PO SCH (08:25)
[2019-12-05] MEDS: LISINOPRIL 10 MG TAB PO SCH (08:25)
[2019-12-05] MEDS: MAGNESIUM OXIDE 400 MG TAB PO SCH (08:25)
[2019-12-05] MEDS: POLYETHYLENE GLYCOL 3350 17 GM PCKT PO SCH ×2 (08:25→08:28)
[2019-12-05] MEDS: METFORMIN HCL PO SCH (08:26)
[2019-12-05] MEDS: SAXAGLIPTIN PO SCH (08:26)
--- NOTE | 2019-12-05 10:47 | CT ---
EXAM DESCRIPTION: CT ABDOMEN AND PELVIS WITHOUT AND WITH CONTRAST CLINICAL HISTORY: prostatitis vs uti COMPARISON: Previous CT abdomen and pelvis April 10, 2019 TECHNIQUE: CT of the abdomen and pelvis are performed prior to and during IV bolus administration of routine adult dose of nonionic iodinated IV contrast. No oral contrast. FINDINGS: CT abdomen The lung bases are clear of infiltrate. Heart is large. Cardiac pacer is in place. Extensive coronary arterial calcification. Liver is normal in size and parenchymal appearance on the precontrast images. Spleen, pancreas, and kidneys are otherwise unremarkable. Exophytic left renal cyst 2.9 cm with density of -1 Hounsfield unit appears benign. After IV contrast, repeat helical scanning through the upper abdomen shows normal enhancement of the liver, spleen and pancreas with normal aortic enhancement. Infrarenal abdominal aortic aneurysm measures 3.3 cm in diameter compared to 3 cm on previous study. Additional area of ectasia just above the bifurcation measures 3 cm. Calcified plaque in the aorta and common iliac and external iliac arteries with bilateral external iliac stenosis similar to previous. Normal enhancement of the kidneys. The lesion posterior to the left kidney is nonenhancing consistent with a cyst. CT pelvis No inflammation is seen around the cecum or terminal ileum or sigmoid colon. Appendix is normal in appearance. Bilateral fatty patulous inguinal rings with no bowel containing hernia. No stones are seen in the distal ureters or bladder. Bladder appears mildly thick-walled. This may be due to cystitis or detrussor muscular hypertrophy from chronic partial bladder outlet obstruction. Compared to previous study April 10, 2019, the bladder appears similar. Postcontrast images show minimal enhancement of the bladder wall and prostate with no focal bladder mass identified. Normal pelvic small bowel loops. No fracture or lytic lesion of the osseous structures. Postcontrast images show normal enhancement of the pelvic vessels. Prostate is prominent 4.9 cm in transverse dimension. Seminal vesicles appear normal. Coronal and sagittal reformatted images confirm the findings. Advanced degenerative disc disease in the lower lumbar spine. TENS unit electrode power source in the left buttock with wire extending to the anterior surface of the right piriformis muscle. Advanced degenerative disc disease of the lower lumbar spine with L3-4 spinal stenosis. IMPRESSION: Left renal lesion without enhancement most consistent with a cyst. Enlarged prostate Thickened bladder wall with no focal bladder mass. Infrarenal abdominal aortic aneurysm 3.3 cm. Follow up as per recommendations below. For management of fusiform aneurysmal abdominal aortas: <2.6 cm aorta, no follow-up is recommended. 2.6-2.9 cm aorta, recommend follow-up every 5 years for aortas meeting the criteria for AAA (>1.5 x proximal normal segment; no f/u if < 1.5 x proximal normal segment; no f/u for aortas < 2.6 cm). 3.0-3.4 cm AAA, recommend follow-up every 3 years. 3.5-3.9 cm AAA, recommend follow-up every 2 years. 4.0-4.4 cm AAA, recommend follow-up every 12 months and recommend vascular consultation. 4.5-5.4 cm AAA, recommend follow-up every 6 months and recommend vascular consultation. >5.5 cm AAA, recommend referral to vascular specialist. For management of saccular abdominal aortic aneurysms of any size, recommend vascular consultation. Note: for AAA enlargement of >0.5 cm in 6 months or >1 cm in 1 year, recommend vascular consultation. References: J Am Zulma Radiol 2013; 10(10):789-794; J Vasc Surg. 2018; 67:2-77 This exam was performed according to our departmental dose-optimization program, which includes automated exposure control, adjustment of the mA and/or kV according to patient size and/or use of iterative reconstruction technique. Electronically signed by: Kasi Rodriguez MD 12/05/2019 10:46 AM CDT
[2019-12-05 11:24] VITALS: BP 146/67; TEMP 97.6; O2SAT 97
--- NOTE | 2019-12-05 13:39 | DS ---
SUPERVISING PHYSICIAN: Mark Nair MD DISCHARGE DIAGNOSIS: 1. Multidrug resistant Escherichia coli urinary tract infection/prostatitis with failed outpatient therapy. 2. Hypertension. 3. Coronary artery disease. 4. Diabetes mellitus, type 2. 5. Chronic obstructive pulmonary disease with no exacerbation. HISTORY OF PRESENT ILLNESS: This is an 84-year-old male patient who was directly admitted from Dr. Combs' office. The patient was diagnosed with a urinary tract infection last week. Urinalysis and cultures were done at that time and he was placed on Levaquin at the time. He then went to the office as he had not improved. He had a fever of up to 101 off and on since last week. He has had urinary tract infections in the past and prostatitis as well. He wears Depends and had quite a bit of incontinence. The morning he went to see Dr. Combs, he hardly had any urine output. His urine culture showed E. coli with multidrug resistance. He was referred for admission and admitted in stable condition. HOSPITAL COURSE: The patient was admitted to the hospital and placed on 2 grams of cefepime q.12h. Blood cultures were also done. He was given Protonix for GI ulcer prophylaxis and Lovenox for DVT prophylaxis. He improved over the next [address] Lindsey, infectious disease physician in [place], was called for recommendations for discharge treatment. She recommended utilizing cefpodoxime 200 mg b.i.d. for 6 weeks of treatment. He was continued on the IV cefepime until today. His vital signs have stabilized. His lab work has also stabilized. He lives at an apartment complex for the elderly and he was referred for primary home care to assist him at his home. He did refuse home health. He will be discharged home today in stable condition. LABORATORY: His WBCs remained stable at 8.9, hemoglobin 13 and hematocrit 38.1. Blood sugars ran between 172 and 297. He was on sliding scale insulin. Electrolytes were stable with sodium 135, potassium 4.5, chloride 101, carbon dioxide 25, anion gap 13.5, BUN 13, creatinine 0.86. Glucose 194, lactic acid 1.5, calcium 8.8. MICROBIOLOGY: Preliminary blood cultures showed no growth after 48 hours. RADIOLOGY: CT of the abdomen was done today and is still pending. DISCHARGE PLAN: The patient will be discharged home in stable condition. He will have primary home care to assist him with his home needs. He is to resume his previous diabetic diet as well as increase his activity as tolerated. He has a followup telehealth visit on 12/11/19 at 1:[address] Combs. He has been given instructions for his telehealth visit. In addition to his routine medications, he is to take Align twice daily while taking his antibiotics. He has also been sent a prescription for cefpodoxime 200 mg b.i.d. for [address] Lindsey's recommendation. Because he had a CT done today, he is to hold his metformin until his Monday evening dose. He is to return to the hospital or followup with Dr. Combs for any problems or complications. DISCHARGE MEDICATIONS: 1. Metoprolol. 2. Glipizide. 3. Levothyroxine. 4. Kombiglyze. 5. Lisinopril. 6. Eliquis. 7. Pravastatin. 8. Nitroglycerin. 9. Novolin N. 10. Tylenol. 11. Saw [place]. 12. MiraLAX. 13. Melatonin. 14. Mag-Ox. 15. Cartia XT. 16. B12. 17. Align. 18. Cefpodoxime 200 mg b.i.d. for 6 weeks. [facility][id number] [facility]
== END 2019-12-05 11:30 | disposition home or self-care (01) | DRG 728 ==
LOC: MS 11:25
PROVIDERS: ADMIT Family Medicine; ATTEND Nurse Practitioner
PROC: BW2110Z Computerized Tomography (CT Scan) of Abdomen and Pelvis using Low Osmolar Contrast, Unenhanced and Enhanced (ICD-10-PCS; principal; 2019-12-05)
DX: N41.0 Acute prostatitis (principal); N39.0 Urinary tract infection, site not specified; Z16.24 Resistance to multiple antibiotics; B96.20 Unspecified Escherichia coli [E. coli] as the cause of diseases classified elsewhere; I10 Essential (primary) hypertension; I25.10 Atherosclerotic heart disease of native coronary artery without angina pectoris; E11.9 Type 2 diabetes mellitus without complications; J44.9 Chronic obstructive pulmonary disease, unspecified; R32 Unspecified urinary incontinence; N40.1 Benign prostatic hyperplasia with lower urinary tract symptoms; E78.5 Hyperlipidemia, unspecified; E03.9 Hypothyroidism, unspecified; G47.33 Obstructive sleep apnea (adult) (pediatric); K21.9 Gastro-esophageal reflux disease without esophagitis; E66.9 Obesity, unspecified; Z85.46 Personal history of malignant neoplasm of prostate; Z95.1 Presence of aortocoronary bypass graft; Z85.51 Personal history of malignant neoplasm of bladder; Z88.3 Allergy status to other anti-infective agents; Z88.2 Allergy status to sulfonamides; Z88.8 Allergy status to other drugs, medicaments and biological substances; Z87.891 Personal history of nicotine dependence; Z68.36 Body mass index [BMI] 36.0-36.9, adult

== ENCOUNTER → 2020-01-20 | Outpatient (CLI) | payer MEDICARE | LOC: GMAL 14:11 | PROVIDERS: ATTEND Family Medicine | DX: N30.01 Acute cystitis with hematuria (principal); E11.9 Type 2 diabetes mellitus without complications; I10 Essential (primary) hypertension; E78.49 Other hyperlipidemia ==

== ENCOUNTER → 2020-05-05 | Outpatient (CLI) | payer MEDICARE | LOC: GMAL 12:20 | PROVIDERS: ATTEND Family Medicine | DX: D51.3 Other dietary vitamin B12 deficiency anemia (principal); E55.9 Vitamin D deficiency, unspecified; Z79.899 Other long term (current) drug therapy; E03.9 Hypothyroidism, unspecified; R74.01 Elevation of levels of liver transaminase levels; E11.9 Type 2 diabetes mellitus without complications ==